=== PATIENT | female | born 1955 | race Caucasian/White ===

== ENCOUNTER 2016-08-01 13:15 | Observation (INO) | payer OTHER ==
[2016-08-01] VITALS (9 sets, daily range): BP systolic 144–202; BP diastolic 88–105; PULSE 78–97; RESP 12–20; TEMP 98.2–98.6; O2SAT 95–100
[~2016-08-01] VITALS: Ht 167.6 cm; Wt 92.0 kg
[~2016-08-01 13:15] MED LIST: ACET-703 PO; ALPR0.25 PO; AMLO5TAB2 PO; ASPI1TAB91 PO; AVIATAB PO; DIAZ5 PO; DULO1CAP3 PO; FEXO15TA PO; FLUT1SPR5 EACH NARE; GABA300C5 PO; HYDR-755 PO; INDA2.5T PO; LANS30CA PO; LEVO75TA3 PO; LOSA50TA PO; METO25TA3 PO
--- NOTE | 2016-08-01 13:27 | PD ---
Physical Exam Time Seen by Provider: 13:22 Narrative 61 year old female presents to the ED for evaluation chest pain. Pain is 7/10, constant. She took nitro two times today and slightly helped the symptoms, but the pain persisted. She contacted Dr. Soto to advised she come to ED. She reports that her BP has been higher over the last two weeks with associated headaches and a "bubble in her chest sensation." But the consistency and pain with minimal results after nitro caused her to be concerned. She has had cardiac stenting in the past as well as angioplasty as recent as 2015. Denies any other recent illness, fever, or chills. 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 Appears without distress. Pt is hypertensive. EKG completed in triage. Once a medical bed becomes available, she will be transferred. Condition: Stable Regina Leonardo Aug 01, 2016 13:27
[2016-08-01] MEDS ORDERED: SODIUM CHLORIDE 0.9% FLUSH 10 ML FLUSH IVF PRN (15:00)
[2016-08-01] MEDS ORDERED: ASPIRIN 325 MG TAB PO ONE (15:15)
[2016-08-01 15:21] LABS: AUTOMATED NEUTROPHIL # 2.8 TH/MM3 (1.8-7.7); BASOPHIL # 0.1 TH/MM3 (0-0.2); BASOPHIL % 1.1 % (0.0-2.0); EOSINOPHIL # 0.1 TH/MM3 (0-0.4); EOSINOPHIL % 2.2 % (0.0-4.0); HEMATOCRIT 44.9 % (35.0-46.0); HEMO FLAGS DIFF FINAL; LYMPH % 48.1 % (9.0-44.0); LYMPHOCYTE # 3.2 TH/MM3 (1.0-4.8); MEAN CELL VOLUME 88.2 FL (80.0-100.0); MEAN CORPUSCULAR HEMOGLOBIN 30.3 PG (27.0-34.0); MEAN CORPUSCULAR HGB CONC 34.3 % (32.0-36.0); MONO % 6.3 % (0.0-8.0); NEUT % 42.3 % (16.0-70.0); PLATELET COUNT 272 TH/MM3 (150-450); RED BLOOD COUNT 5.09 MIL/MM3 (4.00-5.30); RED CELL DISTRIBUTION WIDTH 13.4 % (11.6-17.2); WHITE BLOOD COUNT 6.6 TH/MM3 (4.0-11.0)
[2016-08-01] MEDS ORDERED: HYDR25TA35 PO (15:36)
[2016-08-01] MEDS ORDERED: GABA600T PO ×2 (15:36)
[2016-08-01 15:47] LABS: APTT (PATIENT) 27.5 SEC (24.3-30.1); INTERNATIONAL NORMALIZED RATIO 0.9 RATIO
[2016-08-01 15:58] LABS: ALT (GPT) 24 U/L (10-53); ANION GAP 12 MEQ/L (5-15); AST (GOT) 20 U/L (15-37); BICARBONATE 24.3 MEQ/L (21.0-32.0); BLOOD UREA NITROGEN 8 MG/DL (7-18); CHLORIDE 103 MEQ/L (98-107); GLOMERULAR FILTRATION RATE 92 ML/MIN (>89); MAGNESIUM 2.3 MG/DL (1.5-2.5); POTASSIUM 3.4 MEQ/L (3.5-5.1); SODIUM (NA) 139 MEQ/L (136-145)
[2016-08-01 16:00] LABS: ALKALINE PHOSPHATASE 70 U/L (45-117); CREATINE KINASE 168 U/L (26-192); TOTAL BILIRUBIN ADULT 0.3 MG/DL (0.2-1.0)
--- NOTE | 2016-08-01 16:48 | RADRPT ---
EXAM DATE/TIME: 08/01/2016 16:01 [facility] COMPARISON: CHEST SINGLE AP, March 20, 2016, 9:39. INDICATIONS : Chest pain. MEDICAL HISTORY : coronary artery disease SURGICAL HISTORY : Coronary artery stent. ENCOUNTER: Initial ACUITY: 1 day PAIN SCORE: 8/10 LOCATION: Bilateral chest FINDINGS: A single view of the chest demonstrates the lungs to be symmetrically aerated without evidence of mas s, infiltrate or effusion. The cardiomediastinal contours are stable with tortuosity of the descendi ng thoracic aorta. Osseous structures are intact. CONCLUSION: The lungs are clear. Tariq Lauren MD on August 01, 2016 at 16:40 Board Certified Radiologist. This report was verified electronically.
--- NOTE | 2016-08-01 17:04 | PD ---
Physical Exam Date Seen by Provider: Aug 01, 2016 Time Seen by Provider: 14:30 Narrative 61-year-old female with history of previous coronary artery disease status post stenting, family history of coronary artery disease and MIs early in life, presents to the ER today because she states that she started having substernal chest pains which she rates at a 7 out of 10 at its worse, took nitroglycerin and the chest pain improved only slightly to a 6 out of 10. She denies any vomiting, fevers, shortness of breath, chills, or other symptoms. She states that this discomfort feels like a "bubble in her chest". She does not obey exacerbating alleviating factors. Modifying Factors: None Associated Signs & Symptoms: Chest discomfort Risk Factors: Cardiac history Past medical history includes hypertension, previous CAD status post stenting, gastroesophageal reflux, thyroid disease PHYSICAL EXAM: GENERAL: Middle-aged white female patient currently none acute distress. Awake , alert, oriented 3. Well-developed. SKIN: Focused skin assessment warm/dry. HEAD: Atraumatic. Normocephalic. EYES: Pupils equal and round. No scleral icterus. No injection or drainage. ENT: No nasal bleeding or discharge. Mucous membranes pink and moist. NECK: Trachea midline. No JVD. CARDIOVASCULAR: Regular rate and rhythm. No murmur appreciated. Pulses are present and equal bilaterally. RESPIRATORY: No accessory muscle use. Clear to auscultation. Breath sounds equal bilaterally. GASTROINTESTINAL: Abdomen soft, non-tender, nondistended. Hepatic and splenic margins not palpable. MUSCULOSKELETAL: No obvious deformities. No clubbing. No cyanosis. No edema. NEUROLOGICAL: Awake and alert. No obvious cranial nerve deficits. Motor grossly within normal limits. Normal speech. PSYCHIATRIC: Appropriate mood and affect; insight and judgment normal. Data Data Last Documented VS Vital Signs Date Time Temp Pulse Resp B/P Pulse Ox O2 Delivery O2 Flow Rate FiO2 08/01/16 15:26 99 2 08/01/16 15:23 Nasal Cannula 08/01/16 13:17 98.6 85 12 193/105 Orders Electrocardiogram (08/01/16 13:25) Ckmb (Isoenzyme) Profile (08/01/16 14:58) Complete Blood Count With Diff (08/01/16 14:58) Comprehensive Metabolic Panel (08/01/16 14:58) Magnesium (Mg) (08/01/16 14:58) Prothrombin Time / Inr (Pt) (08/01/16 14:58) Act Partial Throm Time (Ptt) (08/01/16 14:58) Troponin I (08/01/16 14:58) Chest, Single Ap (08/01/16 14:58) Ecg Monitoring (08/01/16 14:58) Bilateral Bp Monitoring (08/01/16 14:58) Iv Access Insert/Monitor (08/01/16 14:58) Oximetry (08/01/16 14:58) Oxygen Administration (08/01/16 14:58) Sodium Chloride 0.9% Flush (Ns Flush) (08/01/16 15:00) Aspirin (Aspirin) (08/01/16 15:15) CKMB (08/01/16 15:10) CKMB% (08/01/16 15:10) Admit Order (Ed Use Only) (08/01/16 16:56) Labs Laboratory Tests Test 08/01/16 15:10 White Blood Count 6.6 TH/MM3 Red Blood Count 5.09 MIL/MM3 Hemoglobin 15.4 GM/DL Hematocrit 44.9 % Mean Corpuscular Volume 88.2 FL Mean Corpuscular Hemoglobin 30.3 PG Mean Corpuscular Hemoglobin 34.3 % Concent Red Cell Distribution Width 13.4 % Platelet Count 272 TH/MM3 Mean Platelet Volume 6.9 FL Neutrophils (%) (Auto) 42.3 % Lymphocytes (%) (Auto) 48.1 % Monocytes (%) (Auto) 6.3 % Eosinophils (%) (Auto) 2.2 % Basophils (%) (Auto) 1.1 % Neutrophils # (Auto) 2.8 TH/MM3 Lymphocytes # (Auto) 3.2 TH/MM3 Monocytes # (Auto) 0.4 TH/MM3 Eosinophils # (Auto) 0.1 TH/MM3 Basophils # (Auto) 0.1 TH/MM3 CBC Comment DIFF FINAL Differential Comment Prothrombin Time 10.0 SEC Prothromb Time International 0.9 RATIO Ratio Activated Partial 27.5 SEC Thromboplast Time Sodium Level 139 MEQ/L Potassium Level 3.4 MEQ/L Chloride Level 103 MEQ/L Carbon Dioxide Level 24.3 MEQ/L Anion Gap 12 MEQ/L Blood Urea Nitrogen 8 MG/DL Creatinine 0.66 MG/DL Estimat Glomerular Filtration 92 ML/MIN Rate Random Glucose 75 MG/DL Calcium Level 8.9 MG/DL Magnesium Level 2.3 MG/DL Total Bilirubin 0.3 MG/DL Aspartate Amino Transf 20 U/L (AST/SGOT) Alanine Aminotransferase 24 U/L (ALT/SGPT) Alkaline Phosphatase 70 U/L Total Creatine Kinase 168 U/L Creatine Kinase MB 3.0 NG/ML Troponin I LESS THAN 0.02 NG/ML Total Protein 8.0 GM/DL Albumin 4.1 GM/DL [facility] Medical Record Reviewed: Yes Supervised Visit with RICH: No Interpretation(s) EKG shows NSR, no ST elevation or depression, and no arrhythmias. No significant T-wave inversions. Laboratory Tests Test 08/01/16 15:10 Hemoglobin 15.4 GM/DL (11.6-15.3) Mean Platelet Volume 6.9 FL (7.0-11.0) Lymphocytes (%) (Auto) 48.1 % (9.0-44.0) Potassium Level 3.4 MEQ/L (3.5-5.1) Troponin I LESS THAN 0.02 NG/ML (0.02-0.05) Last 24 hours Impressions Chest X-Ray 08/01/16 8268 Signed Impressions: Service Date/Time: Monday, August 01, 2016 16:01 - CONCLUSION: The lungs are clear. Tariq Lauren MD Differential Diagnosis ACS versus dysrhythmias versus anxiety versus GERD Narrative Course Cardiac enzymes and chest x-ray was unremarkable. Patient is not in distress in the ER. However, considering patient's history, my plan would be to admit the patient for further evaluation. Planning to admit to chest pain center for further evaluation. Diagnosis Primary Impression: Chest pain Admitting Information Admitting Physician Requests: Admit Condition: Stable Jaclyn Lorenz MD Aug 01, 2016 17:04
[2016-08-01] MEDS ORDERED: SODIUM CHLORIDE 0.9% FLUSH 10 ML FLUSH IV FLUSH PRN (17:15)
[2016-08-01] MEDS ORDERED: ONDANSETRON HCL 4 MG/2 ML VIAL IV PRN (17:15)
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
[2016-08-01] MEDS: NITROGLYCERIN 0.4 MG SL 25 TABS/BTL SL PRN ×3 (18:43→18:57)
[2016-08-01 18:48] LABS: CREATINE KINASE 163 U/L (26-192)
[2016-08-01 19:00] LABS: CKMB 2.4 NG/ML (0.5-3.6)
[2016-08-01] MEDS ORDERED: cloNIDine HCL 0.1 MG TAB PO PRN (19:45)
[2016-08-01] MEDS: ACETAMINOPHEN 500 MG CPLT PO PRN (20:12)
[2016-08-01] MEDS ORDERED: PILL SPLITTER OTHER PRN (20:30)
[2016-08-01] MEDS ORDERED: GABAPENTIN 300 MG CAP PO SCH (21:00)
[2016-08-01 22:03] LABS: CREATINE KINASE 126 U/L (26-192)
[2016-08-01 22:16] LABS: CKMB 2.7 NG/ML (0.5-3.6)
[2016-08-01] MEDS: SODIUM CHLORIDE 0.9% FLUSH 10 ML FLUSH IV FLUSH SCH (22:17)
[2016-08-01] MEDS: LOSARTAN 50 MG TAB PO SCH (22:18)
[2016-08-01] MEDS: PANTOPRAZOLE SOD 40 MG DELAYED RELEASE TAB PO SCH (22:19)
[2016-08-01] MEDS: METOPROLOL TARTRATE 25 MG TAB PO SCH (22:19)
--- NOTE | 2016-08-01 23:39 | EKG ---
Date Performed: 08/01/2016 Time Performed: 13:32:18 PTAGE: 61 years EKG: Sinus rhythm LOW QRS VOLTAGE IN PRECORDIAL LEADS INFERIOR MYOCARDIAL INFARCTION ABNORMAL ECG PREVIOUS TRACING : 03/20/2016 09.32 Compared to prior tracing no significant change DOCTOR: Jose Martin Interpretating Date/Time 08/01/2016 23:37:26
[2016-08-02 00:31] VITALS: PULSE 85
[2016-08-02 01:28] VITALS: BP 170/92; PULSE 76; RESP 20; TEMP 97.3; O2SAT 95
[2016-08-02 04:10] VITALS: PULSE 80
[2016-08-02 05:41] VITALS: BP 170/92; PULSE 77; RESP 20; TEMP 99; O2SAT 96
[2016-08-02] MEDS ORDERED: LEVOTHYROXINE SODIUM 75 MCG TAB PO SCH (06:00)
[2016-08-02] MEDS: ACETAMINOPHEN 500 MG CPLT PO PRN (06:02)
[2016-08-02 07:13] VITALS: BP 148/92; PULSE 84; RESP 20; TEMP 97.9; O2SAT 95
[2016-08-02] MEDS: hydrALAZINE HCL 25 MG TAB PO SCH ×2 (08:39→12:51)
[2016-08-02] MEDS: PANTOPRAZOLE SOD 40 MG DELAYED RELEASE TAB PO SCH (08:39)
[2016-08-02] MEDS: METOPROLOL TARTRATE 25 MG TAB PO SCH (08:39)
[2016-08-02] MEDS: LOSARTAN 50 MG TAB PO SCH (08:39)
[2016-08-02] MEDS: SODIUM CHLORIDE 0.9% FLUSH 10 ML FLUSH IV FLUSH SCH (08:43)
[2016-08-02] MEDS ORDERED: GABAPENTIN 300 MG CAP PO SCH (09:00)
[2016-08-02] MEDS ORDERED: ASPIRIN 325 MG TAB PO SCH (09:00)
--- NOTE | 2016-08-02 09:26 | RADRPT ---
EXAM DATE/TIME: 08/02/2016 09:14 [facility] COMPARISON: No previous studies available for comparison. INDICATIONS : Cephalgia. RADIATION DOSE: 35.01 CTDIvol (mGy) MEDICAL HISTORY : Hypertension. Diabetes mellitus type 1. Dizziness SURGICAL HISTORY : ENCOUNTER: Initial ACUITY: 1 day PAIN SCALE: 1/10 LOCATION: TECHNIQUE: Multiple contiguous axial images were obtained of the head. Using automated exposure control and adj ustment of the mA and/or kV according to patient size, radiation dose was kept as low as reasonably a chievable to obtain optimal diagnostic quality images. FINDINGS: CEREBRUM: The ventricles are normal for age. No evidence of midline shift, mass lesion, hemorrhage or acute in farction. No extra-axial fluid collections are seen. POSTERIOR FOSSA: The cerebellum and brainstem are intact. The 4th ventricle is midline. The cerebellopontine angle i s unremarkable. EXTRACRANIAL: The visualized portion of the orbits is intact. SKULL: The calvaria is intact. No evidence of skull fracture. CONCLUSION: Negative noncontrast CT brain. Tariq Lauren MD on August 02, 2016 at 9:24 Board Certified Radiologist. This report was verified electronically.
[2016-08-02] MEDS ORDERED: REGADENOSON INJ 0.4 MG/5 ML SYR ONE (10:13)
[2016-08-02 11:26] VITALS: BP 177/93; PULSE 76; RESP 20; TEMP 98.7; O2SAT 96
--- NOTE | 2016-08-02 11:44 | RADRPT ---
EXAM DATE/TIME: 08/02/2016 09:16 [facility] COMPARISON: No previous studies available for comparison. INDICATIONS : Left sided chest pain. Angina. Coronary artery disease. DOSE: 26.2 mCi Tc99m Myoview at stress. 8.5 mCi Tc99m Myoview at rest. 0.4 mg Lexiscan STRESS SYMPTOMS: Shortness of breath with chest pain and nausea. EJECTION FRACTION: 65% MEDICAL HISTORY : Hypertension. SURGICAL HISTORY : Coronary artery stent. section. Inguinal hernia repair. Discectomy. ENCOUNTER: Initial ACUITY: 1 day PAIN SCALE: 2/10 LOCATION: Left chest TECHNIQUE: The patient underwent pharmacologic stress with infusion of prescribed dose. Continuous ECG tracing was monitored during stress. Gated SPECT imaging was performed after stress and conventional SPECT i maging was performed at rest. The examination was performed on a SPECT/CT scanner, both attenuation and non-corrected datasets were reviewed. FINDINGS: DISTRIBUTION: The maximum perfused segment at stress is in the anterior wall. PERFUSION STUDY: There is a small size mild severity perfusion defect seen in the apical segment of the lateral wall w ith decrease in perfusion approximately 30%. Review of raw data images demonstrates a different marty deandre of breast attenuation to the apical segment between rest and stress in the changed appearance cou ld be due to differential attenuation effects. No other perfusion defects seen. The summed stress s core is one. GATED STUDY: There is intact wall motion and thickening without hypokinetic or dyskinetic segments. CONCLUSION: 1. No definite evidence of stress-induced ischemia. Small mild decrease in perfusion to the apical l ateral wall is probably due to breast attenuation effects. 2. Intact wall motion 65% ejection fraction. RISK CATEGORY: Low (<1% Annual Mortality Rate) Tariq Lauren MD on August 02, 2016 at 11:34 Board Certified Radiologist. This report was verified electronically.
--- NOTE | 2016-08-02 12:04 | HHI.DCPOC ---
Discharge Care Plan Diagnosis: (1) Chest pain (2) Coronary artery disease (3) H/O heart artery stent (4) Hypertension (5) Hypothyroidism Goals to Promote Your Health DISCUSS THE NEED FOR CHOLESTEROL MEDICATIONS WITH YOUR DOCTOR. * To prevent worsening of your condition and complications * To maintain your health at the optimal level Directions to Meet Your Goals Take your medications as prescribed Follow your dietary instruction Follow activity as directed Keep your appointments as scheduled Take your immunizations and boosters as scheduled If your symptoms worsen call your PCP, if no PCP go to Urgent Care Center or Emergency Room Smoking is Dangerous to Your Health. Avoid second hand smoke Call the 24-hour hour crisis hotline for domestic abuse at [place] Aug 02, 2016 12:04
--- NOTE | 2016-08-02 12:53 | EKG ---
Date Performed: 08/01/2016 Time Performed: 18:01:30 PTAGE: 61 years EKG: Sinus rhythm MODERATE VOLTAGE CRITERIA FOR LVH, CONSIDER NORMAL VARIANT BORDERLINE ECG PREVIOUS TRACING : 08/01/2016 13.32 Since previous tracing, no significant change noted DOCTOR: Jean Paul Basurto Interpretating Date/Time 08/02/2016 12:52:30
--- NOTE | 2016-08-02 12:53 | EKG ---
Date Performed: 08/01/2016 Time Performed: 21:08:08 PTAGE: 61 years EKG: Sinus rhythm MINIMAL VOLTAGE CRITERIA FOR LVH, CONSIDER NORMAL VARIANT NONSPECIFIC T-WAVE ABNORMALITY BORDERLINE ECG NO PREVIOUS TRACING DOCTOR: Jean Paul Basurto Interpretating Date/Time 08/02/2016 12:52:05
--- NOTE | 2016-08-02 12:55 | TR ---
Date Performed: 08/02/2016 Time Performed: 10:04:05 DOCTOR: Jean Paul Basurto DRUG LIST: CLINICAL HISTORY: ANGINA REASON FOR TEST: Angina REASON FOR ENDING: OBSERVATION: CONCLUSION: Lexiscan stress test was performed under standard four minute protocol. Radionuclid e was injected one minute prior to ending the test. No electrocardiographic abormalities were present to suggest ischemia. Nuclear imaging and interpretation are pending. COMMENTS:
== END 2016-08-02 14:16 | disposition home or self-care (01) ==
LOC: NEPC 13:15 → NEDA 16:57 → NEPGCP 19:53
PROVIDERS: ADMIT Internal Medicine Interventional Cardiology; ATTEND Internal Medicine Interventional Cardiology
DX: R07.2 Precordial pain (principal); I25.10 Atherosclerotic heart disease of native coronary artery without angina pectoris; I10 Essential (primary) hypertension; K21.9 Gastro-esophageal reflux disease without esophagitis; G89.29 Other chronic pain; M54.2 Cervicalgia; M79.7 Fibromyalgia; E03.9 Hypothyroidism, unspecified; Z88.1 Allergy status to other antibiotic agents; Z95.5 Presence of coronary angioplasty implant and graft; Z82.49 Family history of ischemic heart disease and other diseases of the circulatory system; Z88.5 Allergy status to narcotic agent; Z88.2 Allergy status to sulfonamides; Z88.8 Allergy status to other drugs, medicaments and biological substances; Z79.82 Long term (current) use of aspirin
CPT/HCPCS: 70450; 71010; 78452; 80053; 82550; 82552; 83735; 84443; 84484; 85025; 85610; 85730; 93005; 93017; 99285; A9502; G0378; J2785

== ENCOUNTER 2016-08-28 10:44 | Observation (INO) | payer OTHER ==
[2016-08-28] VITALS (7 sets, daily range): BP systolic 131–144; BP diastolic 68–89; PULSE 71–109; RESP 16–20; TEMP 98.9–100.1; O2SAT 96–98
[~2016-08-28 10:44] MED LIST changes: -ALPR0.25 PO; -AMLO5TAB2 PO; -DIAZ5 PO; -DULO1CAP3 PO; -GABA300C5 PO; +GABA600T PO; -HYDR-755 PO; +HYDR25TA35 PO; -INDA2.5T PO
[2016-08-28] MEDS ORDERED: SODIUM CHLORIDE 0.9% FLUSH 10 ML FLUSH IVF PRN (11:15)
--- NOTE | 2016-08-28 11:32 | PD ---
HPI Chief Complaint: Cardiac Complaint Time Seen by Provider: 11:22 Travel History International Travel<30 days: No Contact w/Intl Traveler<30days: No Traveled to known affect area: No History of Present Illness HPI 61-year-old female patient with history of hypertension, CAD with stenting, recent admission for cardiac evaluation of syncope and chest pains, presents back to the ER today because she has had 2 days history of dizziness, chest discomfort, feels like she is about to pass out, and states she had flulike symptoms last week as well. She has been coughing with green phlegm, having fevers but states the fevers have been settling down. She denies any current vomiting, diarrhea,, or any other symptoms. Modifying Factors: None Associated Signs & Symptoms: Chest discomfort, dizziness, near syncope Risk Factors: Recent flulike symptoms and coughing, previous episodes of syncope PFSH Past Medical History Hx Anticoagulant Therapy: Yes (ASA) Blood Disorders: No Heart Rhythm Problems: Yes (CAD) Cancer: No Cardiac Catheterization: Yes (2012) Cardiovascular Problems: Yes (HTN,CAD) High Cholesterol: Yes Congestive Heart Failure: No Coronary Artery Disease: Yes Diminished Hearing: No Endocrine: Yes Fibromyalgia: Yes Gastrointestinal Disorders: Yes GERD: Yes Genitourinary: No Headaches: Yes Heparin Induced Thrombocytopen: No Hypertension: Yes Immune Disorder: No Musculoskeletal: Yes Neurologic: Yes Psychiatric: No Reproductive: No Respiratory: No Thyroid Disease: Yes Past Surgical History Abdominal Surgery: Yes (99' UMBILICAL HERNIA REPAIR) Cardiac Surgery: Yes (1 STENT) Section: Yes (X 1) Coronary Artery Bypass Graft: No Gynecologic Surgery: Yes (96' ) Oral Surgery: Yes (WISDOM TEETH AGE 21) Pacemaker: No Other Surgery: Yes Family History Family Myocardial Infarction: No Social History Alcohol Use: No Tobacco Use: No Substance Use: No Allergies-Medications (Allergen,Severity, Reaction): Coded Allergies: Cipro (Unverified Allergy, Severe, 08/28/16) Darvocet-N 100 (Unverified Allergy, Severe, 08/28/16) Procardia (Unverified Allergy, Severe, 08/28/16) Sulfa (Verified Allergy, Intermediate, HIVES, 08/28/16) Zanaflex (Verified Allergy, Intermediate, VOMITING, 08/28/16) Reported Meds & Prescriptions Reported Meds & Active Scripts Active Reported Hydralazine (Hydralazine HCl) 25 Mg Tab 25 Mg PO TID Take with a meal Gabapentin 600 Mg Tab 1,200 Mg PO HS Gabapentin 600 Mg Tab 600 Mg PO DAILY Losartan (Losartan Potassium) 50 Mg Tab 50 Mg PO BID Tylenol Extra Strength (Acetaminophen) 500 Mg Tab 1,000 Mg PO Q4-6H PRN Metoprolol Tartrate 25 Mg Tab 75 Mg PO BID Levothyroxine (Levothyroxine Sodium) 75 Mcg Tab 75 Mcg PO DAILY Lansoprazole 30 Mg Capdr 30 Mg PO BID Flonase Nasal [place] (Fluticasone Nasal [place]) 50 Mcg/Act [place] 2 [place] EACH NARE DAILY PRN Linda Allergy (Fexofenadine HCl) 180 Mg Tab 180 Mg PO DAILY PRN Aviane (Levonorgestrel-Ethinyl Estradiol) 0.1-20 Mg-Mcg Tab 1 Tab PO DAILY Aspirin Adult Low Strength (Aspirin) 81 Mg Tabdr 81 Mg PO HS Review of Systems Except as stated in HPI: all other systems reviewed are Neg Physical Exam Narrative GENERAL: Well-developed middle age white female patient in mild distress. Awake and oriented 3. SKIN: Focused skin assessment warm/dry. HEAD: Atraumatic. Normocephalic. EYES: Pupils equal and round. No scleral icterus. No injection or drainage. ENT: No nasal bleeding or discharge. Mucous membranes pink and moist. NECK: Trachea midline. No JVD. CARDIOVASCULAR: Regular rate and rhythm. No murmur appreciated. RESPIRATORY: No accessory muscle use. Clear to auscultation. Breath sounds equal bilaterally. GASTROINTESTINAL: Abdomen soft, non-tender, nondistended. Hepatic and splenic margins not palpable. MUSCULOSKELETAL: No obvious deformities. No clubbing. No cyanosis. No edema. NEUROLOGICAL: Awake and alert. No obvious cranial nerve deficits. Motor grossly within normal limits. Normal speech. PSYCHIATRIC: Appropriate mood and affect; insight and judgment normal. Data Data Last Documented VS Vital Signs Date Time Temp Pulse Resp B/P Pulse Ox O2 Delivery O2 Flow Rate FiO2 08/28/16 16:41 90 16 136/81 96 08/28/16 12:11 Room Air 08/28/16 10:45 98.9 Orders Electrocardiogram (08/28/16 11:11) Complete Blood Count With Diff (08/28/16 11:11) Comprehensive Metabolic Panel (08/28/16 11:11) Magnesium (Mg) (08/28/16 11:11) Urinalysis - C+S If Indicated (08/28/16 11:11) Ecg Monitoring (08/28/16 11:11) Iv Access Insert/Monitor (08/28/16 11:11) Oximetry (08/28/16 11:11) Sodium Chloride 0.9% Flush (Ns Flush) (08/28/16 11:15) Chest, Single Ap (08/28/16 11:22) Thyroid Stimulating Hormone (08/28/16 11:23) Free Thyroxine (T4) (08/28/16 11:23) Free T3 (08/28/16 11:23) Prothrombin Time / Inr (Pt) (08/28/16 11:32) Act Partial Throm Time (Ptt) (08/28/16 11:32) D-Dimer (08/28/16 11:32) Ct Pulmonary Angiogram (08/28/16 12:36) Iohexol 350 Inj (Omnipaque 350 Inj) (08/28/16 15:34) Labs Laboratory Tests Test 08/28/16 11:30 White Blood Count 6.8 TH/MM3 Red Blood Count 4.32 MIL/MM3 Hemoglobin 12.8 GM/DL Hematocrit 37.9 % Mean Corpuscular Volume 87.8 FL Mean Corpuscular Hemoglobin 29.6 PG Mean Corpuscular Hemoglobin 33.7 % Concent Red Cell Distribution Width 12.9 % Platelet Count 311 TH/MM3 Mean Platelet Volume 7.0 FL Neutrophils (%) (Auto) 67.1 % Lymphocytes (%) (Auto) 25.8 % Monocytes (%) (Auto) 6.1 % Eosinophils (%) (Auto) 0.7 % Basophils (%) (Auto) 0.3 % Neutrophils # (Auto) 4.5 TH/MM3 Lymphocytes # (Auto) 1.7 TH/MM3 Monocytes # (Auto) 0.4 TH/MM3 Eosinophils # (Auto) 0.0 TH/MM3 Basophils # (Auto) 0.0 TH/MM3 CBC Comment DIFF FINAL Differential Comment Prothrombin Time 10.3 SEC Prothromb Time International 0.9 RATIO Ratio Activated Partial 24.5 SEC Thromboplast Time D-Dimer Quantitative (PE/DVT) 1.09 MG/L FEU Urine Color YELLOW Urine Turbidity CLEAR Urine pH 7.0 Urine Specific [place] 1.008 Urine Protein NEG mg/dL Urine Glucose (UA) NEG mg/dL Urine Ketones NEG mg/dL Urine Occult Blood NEG Urine Nitrite NEG Urine Bilirubin NEG Urine Urobilinogen LESS THAN 2.0 MG/DL Urine Leukocyte Esterase NEG Urine RBC LESS THAN 1 /hpf Urine WBC LESS THAN 1 /hpf Urine Bacteria RARE /hpf Microscopic Urinalysis Comment CULT NOT INDICATED Sodium Level 141 MEQ/L Potassium Level 3.6 MEQ/L Chloride Level 107 MEQ/L Carbon Dioxide Level 25.9 MEQ/L Anion Gap 8 MEQ/L Blood Urea Nitrogen 9 MG/DL Creatinine 0.56 MG/DL Estimat Glomerular Filtration 111 ML/MIN Rate Random Glucose 97 MG/DL Calcium Level 8.6 MG/DL Magnesium Level 2.3 MG/DL Total Bilirubin 0.4 MG/DL Aspartate Amino Transf 23 U/L (AST/SGOT) Alanine Aminotransferase 30 U/L (ALT/SGPT) Alkaline Phosphatase 59 U/L Total Protein 6.8 GM/DL Albumin 3.6 GM/DL Free Thyroxine 1.23 NG/DL Free Triiodothyronine (T3) 2.16 PG/ML pg/dL Thyroid Stimulating Hormone 0.709 uIU/ML [address] [place] [address] Medical Decision Making Medical Screen Exam Complete: Yes Emergency Medical Condition: Yes Medical Record Reviewed: Yes Interpretation(s) EKG shows NSR, no ST elevation or depression, and no arrhythmias. No significant T-wave inversions. No significant ST changes. No QT prolongation or delta wave. Laboratory Tests Test 08/28/16 11:30 D-Dimer Quantitative (PE/DVT) 1.09 MG/L FEU (0.00-0.50) Urine Bacteria RARE /hpf (NONE) Free Triiodothyronine (T3) 2.16 PG/ML pg/dL (2.18-3.98) Last [address] Angiography 08/28/16 1236 Signed Impressions: Service Date/Time: Sunday, August 28, 2016 15:33 - CONCLUSION: Negative for pulmonary emboli. History of cardiac stent. Luther Hinton MD FACR Chest X-Ray 08/28/16 1122 Signed Impressions: Service Date/Time: Sunday, August 28, 2016 11:56 - CONCLUSION: No acute disease. No significant change has occurred. Saúl Marie MD Differential Diagnosis Chest discomfort, dizziness, near syncopedysrhythmias versus dehydration versus pneumonia versus anxiety attack Narrative Course EKG did not show dysrhythmias. Cardiac enzymes and workup was essentially unremarkable. Patient has no focal neurological deficits. Negative Romberg testing. At this point, she is fairly symptomatic and plan would be to admit her as an observation for further evaluation. Case was discussed with Dr. Gillespie for admission. Diagnosis Primary Impression: Chest pain Additional Impression: Syncope Admitting Information Admitting Physician Requests: Admit Jaclyn Lorenz MD August 28, 2016 11:32
[2016-08-28 12:06] LABS: AUTOMATED NEUTROPHIL # 4.5 TH/MM3 (1.8-7.7); BASOPHIL % 0.3 % (0.0-2.0); EOSINOPHIL % 0.7 % (0.0-4.0); HEMATOCRIT 37.9 % (35.0-46.0); HEMO FLAGS DIFF FINAL; LYMPH % 25.8 % (9.0-44.0); LYMPHOCYTE # 1.7 TH/MM3 (1.0-4.8); MEAN CELL VOLUME 87.8 FL (80.0-100.0); MEAN CORPUSCULAR HEMOGLOBIN 29.6 PG (27.0-34.0); MEAN CORPUSCULAR HGB CONC 33.7 % (32.0-36.0); MONO % 6.1 % (0.0-8.0); NEUT % 67.1 % (16.0-70.0); PLATELET COUNT 311 TH/MM3 (150-450); RED BLOOD COUNT 4.32 MIL/MM3 (4.00-5.30); RED CELL DISTRIBUTION WIDTH 12.9 % (11.6-17.2); WHITE BLOOD COUNT 6.8 TH/MM3 (4.0-11.0)
[2016-08-28 12:19] LABS: APTT (PATIENT) 24.5 SEC (24.3-30.1); BACTERIA, URINE RARE /hpf; BLOOD, URINE NEG (NEG); GLUCOSE,URINE NEG (NEG); INTERNATIONAL NORMALIZED RATIO 0.9 RATIO; KETONE, URINE NEG (NEG); NITRITE,URINE NEG (NEG); PROTHROMBIN TIME - PATIENT 10.3 SEC (9.8-11.6); URINE COLOR YELLOW (YELLW/STRAW)
[2016-08-28 12:29] LABS: COMMENT (UR) CULT NOT INDICATED; CULTURE IF INDICATED CULT NOT INDICATED
[2016-08-28 12:31] LABS: ALT (GPT) 30 U/L (10-53); ANION GAP 8 MEQ/L (5-15); AST (GOT) 23 U/L (15-37); BICARBONATE 25.9 MEQ/L (21.0-32.0); BLOOD UREA NITROGEN 9 MG/DL (7-18); CHLORIDE 107 MEQ/L (98-107); GLOMERULAR FILTRATION RATE 111 ML/MIN (>89); MAGNESIUM 2.3 MG/DL (1.5-2.5); POTASSIUM 3.6 MEQ/L (3.5-5.1); SODIUM (NA) 141 MEQ/L (136-145)
[2016-08-28 12:33] LABS: ALKALINE PHOSPHATASE 59 U/L (45-117); TOTAL BILIRUBIN ADULT 0.4 MG/DL (0.2-1.0)
--- NOTE | 2016-08-28 12:34 | RADRPT ---
EXAM DATE/TIME: 08/28/2016 11:56 [facility] COMPARISON: CHEST SINGLE AP, August 01, 2016, 16:01. INDICATIONS : Chest pain, palpitations. MEDICAL HISTORY : Cardiovascular disease. SURGICAL HISTORY : Coronary artery stent. ENCOUNTER: Initial ACUITY: 1 day PAIN SCORE: 5/10 LOCATION: Bilateral chest FINDINGS: A single view of the chest demonstrates the lungs to be symmetrically aerated without evidence of mas s, infiltrate or effusion. The cardiomediastinal contours are unremarkable. Osseous structures are intact.CONCLUSION: No acute disease. No significant change has occurred. Saúl Marie MD on August 28, 2016 at 12:32 Board Certified Radiologist. This report was verified electronically.
[2016-08-28 12:41] LABS: FREE T3 2.16 PG/ML (2.18-3.98); FREE T4 1.23 NG/DL (0.76-1.46)
[2016-08-28] MEDS ORDERED: IOHEXOL 350 MG/ML 10 ML VIAL (for RAD DIAG) IV ONE (15:34)
--- NOTE | 2016-08-28 15:47 | RADRPT ---
EXAM DATE/TIME: 08/28/2016 15:33 [facility] COMPARISON: No previous studies available for comparison. INDICATIONS : Left sided chest pain for one month. IV CONTRAST: 50 cc Omnipaque 350 (iohexol) IV RADIATION DOSE: 12.88 CTDIvol (mGy) MEDICAL HISTORY : Hypertension. coronary artery disease SURGICAL HISTORY : cardiac catheterization ENCOUNTER: Initial ACUITY: 1 month PAIN SCALE: 5/10 LOCATION: Left chest TECHNIQUE: Volumetric scanning of the chest was performed using a pulmonary embolism protocol MIP images were re constructed. Using automated exposure control and adjustment of the mA and/or kV according to patien t size, radiation dose was kept as low as reasonably achievable to obtain optimal diagnostic quality images. FINDINGS: There are no suspicious lung lesions identified. The heart is minimally enlarged. There is no axillary or mediastinal adenopathy There is no evidence for central pulmonary emboli Stent is present in the LAD The portion of the liver and spleen identify are free of focal defects. CONCLUSION: Negative for pulmonary emboli. History of cardiac stent. Luther Hinton MD FACR on August 28, 2016 at 15:44 Board Certified Radiologist. This report was verified electronically.
--- NOTE | 2016-08-28 18:04 | HHI.HP ---
HPI Service [facility] Hospitalists Primary Care Physician Terry Hobson M.D. Admission Diagnosis palpitation Chief Complaint: palpitation Travel History International Travel<30 Days: No Contact w/Intl Traveler <30 Da: No Traveled to Known Affected Are: No History of Present Illness Pt is 61 yo with cad/lad stent who presents with recurrent episodes of palpitations and then chest pressure. she usually takes ntg for this with some relief. She had [facility] x 2 in with lad carisa. Then in 03/31 [facility] patent coronaries and stent. Last month admitted to [facility] and had lexiscan. This was felt to show artifact in apical region and less likely ischemia. Pt says these sx's have been on/off and her pcp evaluated her adrenal. She also mentions that endocrinology is searching for the answers and she is scheduled for thyroid u/s. Pt says bp meds recently increased. She was not comfortably going home tonight. denies syncope but did have dizziness during the palpitations. Review of Systems Other palpitation with some cp dizziness Past Family Social History Past Medical History cad, lad carisa 2013 [facility] 03/31 neg for obstruction lexiscan 07/31. no definite ischemia hypothyroidism umbilical hernia surgery c section c5/6 spinal stenosis s/p lami/fusion Reported Medications Hydralazine (Hydralazine HCl) 25 Mg Tab 25 Mg PO TID Take with a meal Gabapentin 600 Mg Tab 1,200 Mg PO HS Gabapentin 600 Mg Tab 600 Mg PO DAILY Losartan (Losartan Potassium) 50 Mg Tab 50 Mg PO BID Tylenol Extra Strength (Acetaminophen) 500 Mg Tab 1,000 Mg PO Q4-6H PRN Metoprolol Tartrate 25 Mg Tab 75 Mg PO BID Levothyroxine (Levothyroxine Sodium) 75 Mcg Tab 75 Mcg PO DAILY Lansoprazole 30 Mg Capdr 30 Mg PO BID Flonase Nasal [place] (Fluticasone Nasal [place]) 50 Mcg/Act [place] 2 [place] EACH NARE DAILY PRN Linda Allergy (Fexofenadine HCl) 180 Mg Tab 180 Mg PO DAILY PRN Aviane (Levonorgestrel-Ethinyl Estradiol) 0.1-20 Mg-Mcg Tab 1 Tab PO DAILY Aspirin Adult Low Strength (Aspirin) 81 Mg Tabdr 81 Mg PO HS Allergies: Coded Allergies: Cipro (Unverified Allergy, Severe, 08/28/16) Darvocet-N 100 (Unverified Allergy, Severe, 08/28/16) Procardia (Unverified Allergy, Severe, 08/28/16) Sulfa (Verified Allergy, Intermediate, HIVES, 08/28/16) Zanaflex (Verified Allergy, Intermediate, VOMITING, 08/28/16) Family History nc Social History no etoh/tob Physical Exam Vital Signs heent neg heart reg lung cta abd s/nt ext no edema Vital Signs Date Time Temp Pulse Resp B/P Pulse Ox O2 Delivery O2 Flow Rate FiO2 08/28/16 16:41 90 16 136/81 96 08/28/16 14:32 88 16 131/74 98 08/28/16 12:11 96 Room Air 08/28/16 12:11 92 Room Air 08/28/16 11:15 89 17 144/73 96 Room Air 08/28/16 10:45 98.9 109 20 135/89 96 Room Air Laboratory Laboratory Tests Test 08/28/16 11:30 White Blood Count 6.8 Red Blood Count 4.32 Hemoglobin 12.8 Hematocrit 37.9 Mean Corpuscular Volume 87.8 Mean Corpuscular Hemoglobin 29.6 Mean Corpuscular Hemoglobin 33.7 Concent Red Cell Distribution Width 12.9 Platelet Count 311 Mean Platelet Volume 7.0 Neutrophils (%) (Auto) 67.1 Lymphocytes (%) (Auto) 25.8 Monocytes (%) (Auto) 6.1 Eosinophils (%) (Auto) 0.7 Basophils (%) (Auto) 0.3 Neutrophils # (Auto) 4.5 Lymphocytes # (Auto) 1.7 Monocytes # (Auto) 0.4 Eosinophils # (Auto) 0.0 Basophils # (Auto) 0.0 CBC Comment DIFF FINAL Differential Comment Prothrombin Time 10.3 Prothromb Time International 0.9 Ratio Activated Partial 24.5 Thromboplast Time D-Dimer Quantitative (PE/DVT) 1.09 Urine Color YELLOW Urine Turbidity CLEAR Urine pH 7.0 Urine Specific [place] 1.008 Urine Protein NEG Urine Glucose (UA) NEG Urine Ketones NEG Urine Occult Blood NEG Urine Nitrite NEG Urine Bilirubin NEG Urine Urobilinogen LESS THAN 2.0 Urine Leukocyte Esterase NEG Urine RBC LESS THAN 1 Urine WBC LESS THAN 1 Urine Bacteria RARE Microscopic Urinalysis Comment CULT NOT INDICATED Sodium Level 141 Potassium Level 3.6 Chloride Level 107 Carbon Dioxide Level 25.9 Anion Gap 8 Blood Urea Nitrogen 9 Creatinine 0.56 Estimat Glomerular Filtration 111 Rate Random Glucose 97 Calcium Level 8.6 Magnesium Level 2.3 Total Bilirubin 0.4 Aspartate Amino Transf 23 (AST/SGOT) Alanine Aminotransferase 30 (ALT/SGPT) Alkaline Phosphatase 59 Total Protein 6.8 Albumin 3.6 Free Thyroxine 1.23 Free Triiodothyronine (T3) 2.16 pg/dL Thyroid Stimulating Hormone 0.709 3rd Gen Result Diagram: 08/28/16 1130 08/28/16 1130 Assessment and Plan Problem List: (1) Palpitations Status: Acute Plan: Pt is 61 yo with cad/lad carisa 2013 [facility] 03/31. no obstruction lexiscan 07/31 no definite ischemia c/o palpitations-recurrent with cp consult her vegetable grader telemetry overnight to monitor for arrhythmia ?30 holter..?loop recorder cont home meds (2) Coronary artery disease Status: Chronic (3) Hypertension Status: Chronic (4) Hypothyroidism Status: Chronic Thomas Gillespie MD August 28, 2016 18:03
[2016-08-28] MEDS ORDERED: LORATADINE 10 MG TAB PO PRN (18:15)
[2016-08-28] MEDS: METOPROLOL TARTRATE 25 MG TAB PO SCH (19:54)
[2016-08-28] MEDS: PANTOPRAZOLE SOD 40 MG DELAYED RELEASE TAB PO SCH (19:55)
[2016-08-28] MEDS: LOSARTAN 50 MG TAB PO SCH (19:55)
[2016-08-28 20:15] LABS: CREATINE KINASE 84 U/L (26-192)
[2016-08-28] MEDS ORDERED: GABAPENTIN 300 MG CAP PO SCH (21:00)
[2016-08-28] MEDS ORDERED: ASPIRIN EC 81 MG TABEC PO SCH (21:00)
[2016-08-29 00:20] VITALS: BP 126/63; PULSE 66; RESP 20; TEMP 98.3; O2SAT 93
[2016-08-29 03:04] LABS: CREATINE KINASE 72 U/L (26-192)
[2016-08-29 04:19] VITALS: BP 119/58; PULSE 70; RESP 20; O2SAT 96
[2016-08-29] MEDS ORDERED: LEVOTHYROXINE SODIUM 75 MCG TAB PO SCH (06:00)
[2016-08-29 07:33] VITALS: BP 124/60; PULSE 68; RESP 14; TEMP 98.5; O2SAT 96
[2016-08-29] MEDS: LOSARTAN 50 MG TAB PO SCH (08:06)
[2016-08-29] MEDS: PANTOPRAZOLE SOD 40 MG DELAYED RELEASE TAB PO SCH (08:06)
[2016-08-29] MEDS: METOPROLOL TARTRATE 25 MG TAB PO SCH (08:07)
--- NOTE | 2016-08-29 08:39 | HHI.PR ---
Subjective Remarks Pt reports that she had some palpitations last night around 7:15PM while she was still in the ED but this was not recorded on this telemetry for review. No events overnight and none this morning. Objective Vitals Vital Signs Date Time Temp Pulse Resp B/P Pulse Ox O2 Delivery O2 Flow Rate FiO2 08/29/16 07:33 98.5 68 14 124/60 96 08/29/16 04:19 70 20 119/58 96 08/29/16 00:20 98.3 66 20 126/63 93 08/28/16 21:39 71 08/28/16 19:38 100.1 98 20 138/68 97 08/28/16 16:41 90 16 136/81 96 08/28/16 14:32 88 16 131/74 98 08/28/16 12:11 96 Room Air 08/28/16 12:11 92 Room Air 08/28/16 11:15 89 17 144/73 96 Room Air 08/28/16 10:45 98.9 109 20 135/89 96 Room Air Result Diagram: 08/28/16 1130 08/28/16 1130 Other Results Laboratory Tests Test 08/28/16 08/28/16 08/29/16 11:30 18:58 02:23 White Blood Count 6.8 TH/MM3 Red Blood Count 4.32 MIL/MM3 Hemoglobin 12.8 GM/DL Hematocrit 37.9 % Mean Corpuscular Volume 87.8 FL Mean Corpuscular Hemoglobin 29.6 PG Mean Corpuscular Hemoglobin 33.7 % Concent Red Cell Distribution Width 12.9 % Platelet Count 311 TH/MM3 Mean Platelet Volume 7.0 FL Neutrophils (%) (Auto) 67.1 % Lymphocytes (%) (Auto) 25.8 % Monocytes (%) (Auto) 6.1 % Eosinophils (%) (Auto) 0.7 % Basophils (%) (Auto) 0.3 % Neutrophils # (Auto) 4.5 TH/MM3 Lymphocytes # (Auto) 1.7 TH/MM3 Monocytes # (Auto) 0.4 TH/MM3 Eosinophils # (Auto) 0.0 TH/MM3 Basophils # (Auto) 0.0 TH/MM3 CBC Comment DIFF FINAL Differential Comment Prothrombin Time 10.3 SEC Prothromb Time International 0.9 RATIO Ratio Activated Partial 24.5 SEC Thromboplast Time D-Dimer Quantitative (PE/DVT) 1.09 MG/L FEU Urine Color YELLOW Urine Turbidity CLEAR Urine pH 7.0 Urine Specific [place] 1.008 Urine Protein NEG mg/dL Urine Glucose (UA) NEG mg/dL Urine Ketones NEG mg/dL Urine Occult Blood NEG Urine Nitrite NEG Urine Bilirubin NEG Urine Urobilinogen LESS THAN 2.0 MG/DL Urine Leukocyte Esterase NEG Urine RBC LESS THAN 1 /hpf Urine WBC LESS THAN 1 /hpf Urine Bacteria RARE /hpf Microscopic Urinalysis Comment CULT NOT INDICATED Sodium Level 141 MEQ/L Potassium Level 3.6 MEQ/L Chloride Level 107 MEQ/L Carbon Dioxide Level 25.9 MEQ/L Anion Gap 8 MEQ/L Blood Urea Nitrogen 9 MG/DL Creatinine 0.56 MG/DL Estimat Glomerular Filtration 111 ML/MIN Rate Random Glucose 97 MG/DL Calcium Level 8.6 MG/DL Magnesium Level 2.3 MG/DL Total Bilirubin 0.4 MG/DL Aspartate Amino Transf 23 U/L (AST/SGOT) Alanine Aminotransferase 30 U/L (ALT/SGPT) Alkaline Phosphatase 59 U/L Total Protein 6.8 GM/DL Albumin 3.6 GM/DL Free Thyroxine 1.23 NG/DL Free Triiodothyronine (T3) 2.16 PG/ML pg/dL Thyroid Stimulating Hormone 0.709 uIU/ML 3rd Gen Total Creatine Kinase 84 U/L 72 U/L Troponin I LESS THAN 0.02 LESS THAN 0.02 NG/ML NG/ML Imaging Last Impressions CT Angiography 08/28/16 1236 Signed Impressions: Service Date/Time: Sunday, August 28, 2016 15:33 - CONCLUSION: Negative for pulmonary emboli. History of cardiac stent. Luther Hinton MD FACR Chest X-Ray 08/28/16 1122 Signed Impressions: Service Date/Time: Sunday, August 28, 2016 11:56 - CONCLUSION: No acute disease. No significant change has occurred. Saúl Marie MD Objective Remarks General: NAD, AAOx3 Chest: CTA Cardiac: Regular Abd: +BS, soft ND/NT Ext: No edema A/P Problem List: (1) Palpitations Status: Acute Plan: - Pt is 61 yo with CAD and previous LAD JUAN in 2013 - Pt has been having intermittent symptoms of dizziness, generalized weakness and palpitations with chest pain for several months. - She underwent LHC in 03/2016 for evaluation of these symptoms with no obstruction noted. - She had a Lexiscan 07/31 with no definite ischemia - Pt presented back to the ED on 08/28/16 with recurrent palpitations and chest pain. - No events recorded on telemetry from overnight. - Her audio visual facilities engineer, Dr. Paulino has been consulted - Pt reports that her PCP and an Tube Trailer Filler are looking into her thyroid as a possible cause as well. - Cont home meds - DVT prophylaxis with SCDs (2) Coronary artery disease Status: Chronic (3) Hypertension Status: Chronic (4) Hypothyroidism Status: Chronic Assessment and Plan Patient examined. Assessment and plan formulated with Monica Robert PA-C. I agree with the above. palpitation. discussed with dr Paulino. stop hydralazine. norvasc started. he wanted to get ct a/p to eval adrenal then d/c if negative and f/u for possible event monitor. Monica Robert August 29, 2016 08:39 Thomas Gillespie MD August 29, 2016 14:40
[2016-08-29] MEDS ORDERED: hydrALAZINE HCL 25 MG TAB PO SCH (09:00)
[2016-08-29] MEDS ORDERED: GABAPENTIN 300 MG CAP PO SCH (09:00)
--- NOTE | 2016-08-29 10:21 | MB ---
cc: LEATHA BOYD M.D. DATE OF CONSULTATION: 08/29/2016 REASON FOR CONSULTATION: Cardiology consultation for evaluation of palpitations. HISTORY OF PRESENT ILLNESS: Linda Funk is a 60-year-old woman, well-known to me she has coronary artery disease, hypertension, hyperlipidemia and obesity. She had a stent by Dr. Bee of her left anterior descending February 27, 2014. This was a 4.0 x 22 mm integrity stent. Her last cardiac catheterization was performed March 2016 showing no significant stenoses. The last nuclear stress test earlier this year showed no evidence for ischemia. She comes into the office saying that this morning she got up took her medications which included hydralazine and then felt her heart pounding, was dizzy and was lightheaded. She has she has known hypertension. She has been on metoprolol and on losartan. The losartan been increased to 50 b.i.d., Metoprolol as an increase of 75 b.i.d. She had previously had a reaction to her cardia but this is when she was . She preferred to stay on the amlodipine but had feet swelling and was switched to losartan. She is previously on thiazide diuretic but this was stopped due to low potassium. Amlodipine has not been tried with her taking an angiotensin receptor maciel. MEDICATIONS: Her other medications are charted. ALLERGIES CIPRO DARVOCET PROCARDIA SULFA ZANAFLEX. 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 PAST MEDICAL HISTORY: 1. Includes allergic rhinitis 2. Anxiety 3. Coronary artery disease 4. Cervical radiculopathy 5. Atypical chest pain. 6. esophageal reflux 7. Fibromyalgia 8. hyperlipidemia 9. Hypertension 10. thyroidism 11. inflammatory arthritis 12. lymphadenopathy 13. Obesity 14. Palpitations 15. shortness of breath 16. temporomandibular joint pain 17. Vitamin D deficiency. LABORATORY WORK UP: The had lab work including urinary metanephrine are showing some degree of abnormality. REVIEW OF SYSTEMS The review of systems otherwise negative. PHYSICAL EXAMINATION: IN GENERAL: Obese pleasant white female in no acute distress. VITAL SIGNS: Charted. HEAD, EYES, EARS, NOSE, AND THROAT: Exam unremarkable. NECK: No JVD, no bruits. CHEST: The chest is clear to auscultation. CARDIOVASCULAR SYSTEM: Cardiac exam S1-S2 regular rate and rhythm. No murmurs, gallops. ABDOMEN: Soft, nontender. No masses or organomegaly. EXTREMITIES: No clubbing, cyanosis or edema. NEUROLOGICALLY: Alert and oriented and nonfocal. RADIOLOGIC: Electrocardiogram shows no evidence for ischemia. Cardiac enzymes normal and regular labs unremarkable. IMPRESSION Palpitations. PLAN: Suspect this is most likely a side effect of her Hydralazine we will recommend discontinuation of Hydralazine. I would recommend discontinuation of hydralazine and placing with amlodipine 5 mg daily, this can always be adjusted up or down as needed for blood pressure. Hopefully the presence of losartan will prevent any edema, side effect. We will check a noncontrast abdominal CT to rule out pheochromocytoma in view of the abnormal labs she has had. I would wait a few days and then get an outpatient 24 Holter to look for evidence for arrhythmias, I doubt that she is having any type of acute coronary syndrome to my perspective, she can be discharged home later today after a CT scan. MD FARAZ Padilla/evon /9:41 AM /10:08 AM
[2016-08-29 12:06] VITALS: BP 98/61; PULSE 74; RESP 16; TEMP 97.6; O2SAT 95
--- NOTE | 2016-08-29 13:58 | EKG ---
Date Performed: 08/28/2016 Time Performed: 11:24:16 PTAGE: 61 years EKG: Sinus rhythm NONSPECIFIC T-WAVE ABNORMALITY BORDERLINE ECG PREVIOUS TRACING : 08/01/2016 21.08 Compared to prior tracing no significant change DOCTOR: John Land Interpretating Date/Time 08/29/2016 13:57:14
[2016-08-29] MEDS ORDERED: AMLO5 PO (14:03)
--- NOTE | 2016-08-29 14:03 | HHI.DCPOC ---
Discharge Care Plan Diagnosis: (1) Palpitations (2) Hypertension (3) Hypothyroidism (4) Coronary artery disease (5) Chest pain Goals to Promote Your Health * To prevent worsening of your condition and complications * To maintain your health at the optimal level Directions to Meet Your Goals Take your medications as prescribed Follow your dietary instruction Follow activity as directed Keep your appointments as scheduled Take your immunizations and boosters as scheduled If your symptoms worsen call your PCP, if no PCP go to Urgent Care Center or Emergency Room Smoking is Dangerous to Your Health. Avoid second hand smoke Call the 24-hour hour crisis hotline for domestic abuse at [place] Robert August 29, 2016 14:03
[2016-08-29 15:37] VITALS: BP 113/65; PULSE 75; RESP 18; TEMP 99.6; O2SAT 95
[2016-08-29] MEDS ORDERED: IOHEXOL 350 MG/ML 10 ML VIAL (for RAD DIAG) IV ONE (16:00)
--- NOTE | 2016-08-29 17:24 | RADRPT ---
EXAM DATE/TIME: 08/29/2016 16:07 [facility] COMPARISON: No previous studies available for comparison. INDICATIONS : Abdomen pain. ORAL CONTRAST: No oral contrast ingested. RADIATION DOSE: 10.96 CTDIvol (mGy) MEDICAL HISTORY : Hypertension. Cardiovascular disease SURGICAL HISTORY : None. ENCOUNTER: Initial ACUITY: 1 day PAIN SCALE: 4/10 LOCATION: Bilateral abdomen. TECHNIQUE: Volumetric scanning of the abdomen and pelvis was performed. Using automated exposure control and ad justment of the mA and/or kV according to patient size, radiation dose was kept as low as reasonably achievable to obtain optimal diagnostic quality images. FINDINGS: There is subsegmental atelectasis in the both bases. Trace bilateral effusions are present. The live r and spleen are free of focal defects. The gallbladder and pancreas demonstrate no abnormality. The adrenal glands are normal. The kidneys demonstrate no evidence of solid renal mass or hydronephrosis. No free fluid or abdominal masses are identified. No para-aortic adenopathy is seen. Examination of the pelvis demonstrates no evidence of free fluid or pelvic mass. No abnormally enlarg ed inguinal or retroperitoneal lymph nodes are present. The bladder is unremarkable. CONCLUSION: 1. No evidence of acute abdominal or pelvic process. No masses are identified. Jean Paul Dalton MD on August 29, 2016 at 17:20 Board Certified Radiologist. This report was verified electronically.
[2016-08-29 18:01] VITALS: PULSE 84
[2016-08-31] MEDS ORDERED: amLODIPine BESYLATE 5 MG TAB PO SCH (09:00)
== END 2016-08-29 18:34 | disposition home or self-care (01) ==
LOC: NEPE 10:44 → NEDH 16:48 → NEPGCP 19:31
PROVIDERS: ADMIT Hospitalist; ATTEND Hospitalist
DX: R00.2 Palpitations (principal); R07.9 Chest pain, unspecified; I25.10 Atherosclerotic heart disease of native coronary artery without angina pectoris; E03.9 Hypothyroidism, unspecified; I10 Essential (primary) hypertension; E78.5 Hyperlipidemia, unspecified; R42 Dizziness and giddiness; M48.02 Spinal stenosis, cervical region; Z98.1 Arthrodesis status; E66.9 Obesity, unspecified; J30.9 Allergic rhinitis, unspecified; M54.12 Radiculopathy, cervical region; K21.9 Gastro-esophageal reflux disease without esophagitis; M79.7 Fibromyalgia; R59.1 Generalized enlarged lymph nodes; R06.02 Shortness of breath; E55.9 Vitamin D deficiency, unspecified; F41.9 Anxiety disorder, unspecified; R55 Syncope and collapse; Z79.82 Long term (current) use of aspirin
CPT/HCPCS: 71010; 71275; 74177; 80053; 81001; 82550; 83735; 84439; 84443; 84481; 84484; 85025; 85379; 85610; 85730; 93005; 99285; G0378; Q9967

== ENCOUNTER 2016-10-05 09:51 | Observation (INO) | payer OTHER ==
[~2016-10-05] VITALS: Ht 167.6 cm; Wt 92.0 kg
[2016-10-05] VITALS (7 sets, daily range): BP systolic 135–150; BP diastolic 78–85; PULSE 72–76; RESP 15–18; TEMP 98.1–98.6; O2SAT 96
[~2016-10-05 09:51] MED LIST changes: +AMLO5 PO; -HYDR25TA35 PO
[2016-10-05] MEDS ORDERED: CYMB60CA PO (10:23)
[2016-10-05] MEDS ORDERED: AMLO2.5T PO (10:23)
[2016-10-05] MEDS ORDERED: ASPIRIN 81 MG CHEW TAB PO ONE (10:45)
[2016-10-05] MEDS ORDERED: SODIUM CHLORIDE 0.9% FLUSH 10 ML FLUSH IVF PRN (10:45)
--- NOTE | 2016-10-05 11:01 | PD ---
HPI Chief Complaint: Chest Pain Time Seen by Provider: 10:41 Travel History International Travel<30 days: No Contact w/Intl Traveler<30days: No Traveled to known affect area: No History of Present Illness HPI Our patient is a 61 y.o. female with a history of CAD presenting with a 1 week history of non-worsening left sided chest pain. She notes having dyspnea, occasional diaphoresis, and radiation of pain to her jaw and face that last occurred a few days ago. She describes the pain as a sharp, stabbing pain that has persisted all week. She also notes having numbness in the area of her pain, as well as non-related pain in her right lower back. She also notes having edema in her legs since her symptoms started. However, she denies nausea , vomiting, abdominal pain, or changes in urinary or bowel habits. Denies blood in urine or stool. Also denies any aggravating or alleviating factors. Because her symptoms have persisted, she called a nurse at [facility] who instructed her to come in today. She has a history of RCA stent placement in 2012, when she experienced similar symptoms as today. She is currently being followed for her CAD, hyperlipidemia, and hypertension by Dr. Paulino. She denies smoking, alcohol or drug use. She notes her father had severe CAD with numerous blockages. [facility] Past Medical History Narrative Medical HTN, Hyperlipidemia, Hypertension, CAD Hx Anticoagulant Therapy: Yes (asa 81) Blood Disorders: No Heart Rhythm Problems: Yes (CAD) Cancer: No Cardiac Catheterization: Yes (2012) Cardiovascular Problems: Yes (htn, CAD, stent) High Cholesterol: Yes Congestive Heart Failure: No Coronary Artery Disease: Yes Diminished Hearing: No Endocrine: Yes Fibromyalgia: Yes Gastrointestinal Disorders: Yes GERD: Yes Genitourinary: No Headaches: Yes Heparin Induced Thrombocytopen: No Hypertension: Yes Immune Disorder: No Musculoskeletal: Yes Neurologic: Yes Psychiatric: No Reproductive: No Respiratory: No Thyroid Disease: Yes Past Surgical History Abdominal Surgery: Yes (99' UMBILICAL HERNIA REPAIR) Cardiac Surgery: Yes (1 STENT) Section: Yes (X 1) Coronary Artery Bypass Graft: No Gynecologic Surgery: Yes (96' ) Oral Surgery: Yes (WISDOM TEETH AGE 21) Pacemaker: No Other Surgery: Yes Social History Alcohol Use: No Tobacco Use: No Substance Use: No Allergies-Medications (Allergen,Severity, Reaction): Coded Allergies: Cipro (Unverified Allergy, Severe, 10/05/16) Darvocet-N 100 (Unverified Allergy, Severe, 10/05/16) Procardia (Unverified Allergy, Severe, 10/05/16) Sulfa (Verified Allergy, Intermediate, HIVES, 10/05/16) Zanaflex (Verified Allergy, Intermediate, VOMITING, 10/05/16) Reported Meds & Prescriptions Reported Meds & Active Scripts Active Reported Cymbalta DR (Duloxetine HCl) 60 Mg Capdr 60 Mg PO BID Amlodipine (Amlodipine Besylate) 2.5 Mg Tab 2.5 Mg PO DAILY Gabapentin 600 Mg Tab 600 Mg PO DAILY Losartan (Losartan Potassium) 50 Mg Tab 50 Mg PO BID Metoprolol Tartrate 25 Mg Tab 75 Mg PO BID Levothyroxine (Levothyroxine Sodium) 75 Mcg Tab 75 Mcg PO DAILY Lansoprazole 30 Mg Capdr 30 Mg PO BID Flonase Nasal [place] (Fluticasone Nasal [place]) 50 Mcg/Act [place] 2 [place] EACH NARE DAILY PRN Linda Allergy (Fexofenadine HCl) 180 Mg Tab 180 Mg PO DAILY PRN Aviane (Levonorgestrel-Ethinyl Estradiol) 0.1-20 Mg-Mcg Tab 1 Tab PO DAILY Aspirin Adult Low Strength (Aspirin) 81 Mg Tabdr 81 Mg PO HS Review of Systems Except as stated in HPI: all other systems reviewed are Neg Physical Exam Narrative GENERAL: Alert and oriented, in her bed lying comfortably. Speaks in full sentences. In no acute distress. SKIN: Warm and dry. HEAD: Normocephalic. EYES: No scleral icterus. No injection or drainage. NECK: Supple, trachea midline. No JVD or lymphadenopathy. CARDIOVASCULAR: Regular rate and rhythm without murmurs, gallops, or rubs. No JVD or carotid bruits. RESPIRATORY: Breath sounds equal bilaterally. No accessory muscle use. GASTROINTESTINAL: Abdomen soft, diffusely tender, nondistended. Negative Funk' s sign. MUSCULOSKELETAL: No cyanosis, trace edema. BACK: Nontender without obvious deformity. No CVA tenderness. Data Data Last Documented VS Vital Signs Date Time Temp Pulse Resp B/P Pulse Ox O2 Delivery O2 Flow Rate FiO2 10/05/16 11:14 76 139/78 138/83 10/05/16 10:15 96 Room Air 10/05/16 10:15 17 10/05/16 09:52 98.6 Orders Electrocardiogram (10/05/16 10:20) Electrocardiogram (10/05/16 10:41) Basic Metabolic Panel (Bmp) (10/05/16 10:41) Ckmb (Isoenzyme) Profile (10/05/16 10:41) Complete Blood Count With Diff (10/05/16 10:41) Magnesium (Mg) (10/05/16 10:41) Prothrombin Time / Inr (Pt) (10/05/16 10:41) Act Partial Throm Time (Ptt) (10/05/16 10:41) Troponin I (10/05/16 10:41) Chest, Single Ap (10/05/16 10:41) Ecg Monitoring (10/05/16 10:41) Bilateral Bp Monitoring (10/05/16 10:41) Iv Access Insert/Monitor (10/05/16 10:41) Oximetry (10/05/16 10:41) Oxygen Administration (10/05/16 10:41) Aspirin Chew (Aspirin Chew) (10/05/16 10:45) Sodium Chloride 0.9% Flush (Ns Flush) (10/05/16 10:45) CKMB (10/05/16 10:50) CKMB% (10/05/16 10:50) Admit Order (Ed Use Only) (10/05/16 12:46) Labs Laboratory Tests Test 10/05/16 10:50 White Blood Count 6.9 TH/MM3 Red Blood Count 4.48 MIL/MM3 Hemoglobin 13.8 GM/DL Hematocrit 39.9 % Mean Corpuscular Volume 89.1 FL Mean Corpuscular Hemoglobin 30.8 PG Mean Corpuscular Hemoglobin 34.5 % Concent Red Cell Distribution Width 14.0 % Platelet Count 303 TH/MM3 Mean Platelet Volume 7.1 FL Neutrophils (%) (Auto) 54.7 % Lymphocytes (%) (Auto) 36.3 % Monocytes (%) (Auto) 6.7 % Eosinophils (%) (Auto) 1.6 % Basophils (%) (Auto) 0.7 % Neutrophils # (Auto) 3.8 TH/MM3 Lymphocytes # (Auto) 2.5 TH/MM3 Monocytes # (Auto) 0.5 TH/MM3 Eosinophils # (Auto) 0.1 TH/MM3 Basophils # (Auto) 0.0 TH/MM3 CBC Comment DIFF FINAL Differential Comment Prothrombin Time 9.7 SEC Prothromb Time International 0.9 RATIO Ratio Activated Partial 25.4 SEC Thromboplast Time Sodium Level 139 MEQ/L Potassium Level 3.4 MEQ/L Chloride Level 103 MEQ/L Carbon Dioxide Level 26.7 MEQ/L Anion Gap 9 MEQ/L Blood Urea Nitrogen 13 MG/DL Creatinine 0.56 MG/DL Estimat Glomerular Filtration 111 ML/MIN Rate Random Glucose 93 MG/DL Calcium Level 9.0 MG/DL Magnesium Level 2.4 MG/DL Total Creatine Kinase 187 U/L Creatine Kinase MB 2.5 NG/ML Troponin I LESS THAN 0.02 NG/ML MDM Medical Decision Making Medical Screen Exam Complete: Yes Emergency Medical Condition: Yes Differential Diagnosis IN, costochondritis, PE, cholecystitis Narrative Course Patient agreed to undergo cardiac workup to further investigate her symptoms. Diagnosis Primary Impression: Chest pain Additional Impressions: Coronary artery disease Hypertension Palpitations Hypokalemia Admitting Information Admitting Physician Requests: Observation Wilson Butt MD Oct 05, 2016 11:01
--- NOTE | 2016-10-05 11:19 | RADRPT ---
EXAM DATE/TIME: 10/05/2016 10:41 [facility] COMPARISON: CT ABDOMEN & PELVIS W CONTRAST, August 29, 2016, 16:07. CHEST SINGLE AP, August 28, 2016, 11:56. INDICATIONS : Chest pain for 1 week. MEDICAL HISTORY : Hypertension. Coronary artery disease. Irregular heartbeat. SURGICAL HISTORY : Coronary stent. ENCOUNTER: Initial ACUITY: 1 week PAIN SCORE: 7/10 LOCATION: Bilateral chest FINDINGS: The heart is normal in size. There is dilation of the aortic root which is similar to previous dated 08/28/16. The mediastinal contours are otherwise unremarkable. The visualized pulmonary parenchyma is clear. The visualized bony structures are grossly intact. CONCLUSION: 1. Dilation of aortic root similar previous exam. 2. The lungs are clear. Adrian Hinton MD on October 05, 2016 at 11:15 Board Certified Radiologist. This report was verified electronically.
[2016-10-05 11:26] LABS: AUTOMATED NEUTROPHIL # 3.8 TH/MM3 (1.8-7.7); BASOPHIL % 0.7 % (0.0-2.0); EOSINOPHIL # 0.1 TH/MM3 (0-0.4); EOSINOPHIL % 1.6 % (0.0-4.0); HEMATOCRIT 39.9 % (35.0-46.0); HEMO FLAGS DIFF FINAL; LYMPH % 36.3 % (9.0-44.0); LYMPHOCYTE # 2.5 TH/MM3 (1.0-4.8); MEAN CELL VOLUME 89.1 FL (80.0-100.0); MEAN CORPUSCULAR HEMOGLOBIN 30.8 PG (27.0-34.0); MEAN CORPUSCULAR HGB CONC 34.5 % (32.0-36.0); MONO % 6.7 % (0.0-8.0); NEUT % 54.7 % (16.0-70.0); PLATELET COUNT 303 TH/MM3 (150-450); RED BLOOD COUNT 4.48 MIL/MM3 (4.00-5.30); WHITE BLOOD COUNT 6.9 TH/MM3 (4.0-11.0)
[2016-10-05 11:34] LABS: APTT (PATIENT) 25.4 SEC (24.3-30.1); INTERNATIONAL NORMALIZED RATIO 0.9 RATIO; PROTHROMBIN TIME - PATIENT 9.7 SEC (9.8-11.6)
[2016-10-05 11:52] LABS: CREATINE KINASE 187 U/L (26-192)
[2016-10-05 11:56] LABS: ANION GAP 9 MEQ/L (5-15); BICARBONATE 26.7 MEQ/L (21.0-32.0); BLOOD UREA NITROGEN 13 MG/DL (7-18); CHLORIDE 103 MEQ/L (98-107); GLOMERULAR FILTRATION RATE 111 ML/MIN (>89); MAGNESIUM 2.4 MG/DL (1.5-2.5); POTASSIUM 3.4 MEQ/L (3.5-5.1); SODIUM (NA) 139 MEQ/L (136-145)
[2016-10-05 12:15] LABS: CKMB 2.5 NG/ML (0.5-3.6)
[2016-10-05] MEDS ORDERED: SODIUM CHLORIDE 0.9% FLUSH 5 ML FLUSH IVF PRN (13:45)
[2016-10-05] MEDS ORDERED: ONDANSETRON HCL 4 MG/2 ML VIAL IV PRN (13:45)
[2016-10-05] MEDS ORDERED: POTASSIUM CHLORIDE 20 MEQ CONTROLLED RELEASE TAB PO ONE (13:45)
[2016-10-05] MEDS ORDERED: ACETAMINOPHEN/HYDROcodone 325 MG/7.5 MG TAB PO PRN (13:45)
--- NOTE | 2016-10-05 13:56 | EKG ---
Date Performed: 10/05/2016 Time Performed: 10:20:26 PTAGE: 61 years EKG: Sinus rhythm LOW QRS VOLTAGE IN PRECORDIAL LEADS MINIMAL VOLTAGE CRITERIA FOR LVH, CONSIDER NORMAL VARIANT BORDER LINE ECG Compared to prior tracing no significant change PREVIOUS TRACING : 08/19/2016 23.26 DOCTOR: Michelle Carney Interpretating Date/Time 10/05/2016 13:49:28
[2016-10-05] MEDS ORDERED: POTASSIUM CHLORIDE 10 MEQ CONTROLLED RELEASE TAB PO ONE (14:00)
--- NOTE | 2016-10-05 14:03 | HHI.HP ---
[facility] Primary Care Physician Terry Hobson M.D. Chief Complaint Chest pain and elevated blood pressure History of Present Illness This is a 61-year-old female that presents to ED via private vehicle with her daughter with history of CAD and hypertension with a complaint of her blood pressure elevated for the last week and a half and having a constant left and right-sided chest discomfort since yesterday. The discomfort in her chest as described as a sharp and tight sensation. She also has had intermittently a sensation of her heart fluttering. No shortness breath, nausea, or diaphoresis. She states her blood pressures have been running high also. As high as 170s. She saw her aerospace project manager Dr. Tony Paulino last Sunday and also reviewed a Holter monitor that was performed about 2 weeks prior. She apparently had SVT and atrial fibrillation on Holter monitor. She does not know anymore the specifics of it. Also last Sunday her blood pressure was discussed. They contemplating increasing the amlodipine to 5 mg at night but decided to wait and see how her blood pressure responds. She also is being evaluated by parole agent to determine if her blood pressure issues might be related to an endocrine abnormality. Patient was in the chest pain center in July of this year and had a nonischemic Lexiscan. She has history of a stent to the LAD February 27, 2014. She had a cardiac catheterization March 20, 2016 that revealed 10% in-stent restenosis. Patient denies recent illnesses. Denies fevers or chills. Review of Systems General: Patient denies fevers, chills recent, and recent travel HEENT: Patient denies headache, sore throat, difficulty swallowing. Cardiovascular: Has the chest discomfort as mentioned above. Had sensation of her heart fluttering. No diaphoresis. No syncope. Respiratory: Denies shortness of breath or inspirational chest discomfort. Denies coughing wheezing or hemoptysis. GI: Patient denies nausea, vomiting, diarrhea, abdominal pain, bloody stools. Musculoskeletal: Patient denies joint pain or edema. Denies calf pain or edema. Neurovascular: Patient denies numbness, tingling, weakness in extremities. Denies headache. Endocrine: Denies polyuria and polydipsia. Hematologic: Denies easy bruising. Skin: Denies rash or itching. Past Family Social History Allergies: Coded Allergies: Cipro (Unverified Allergy, Severe, 10/05/16) Darvocet-N 100 (Unverified Allergy, Severe, 10/05/16) Procardia (Unverified Allergy, Severe, 10/05/16) Sulfa (Verified Allergy, Intermediate, HIVES, 10/05/16) Zanaflex (Verified Allergy, Intermediate, VOMITING, 10/05/16) Past Medical History CAD. Hypertension. Hypothyroidism. Questionable hyperlipidemia. She was on a statin after getting a stent in 2013 but states she's been off the statins for least 1 year. Denies diabetes. Past Surgical History Cardiac catheterizations. One with an intervention in the most recently without intervention. Reported Medications Reported Meds & Active Scripts Active Reported Cymbalta DR (Duloxetine HCl) 60 Mg Capdr 60 Mg PO BID Amlodipine (Amlodipine Besylate) 2.5 Mg Tab 2.5 Mg PO DAILY Gabapentin 600 Mg Tab 600 Mg PO DAILY Losartan (Losartan Potassium) 50 Mg Tab 50 Mg PO BID Metoprolol Tartrate 25 Mg Tab 75 Mg PO BID Levothyroxine (Levothyroxine Sodium) 75 Mcg Tab 75 Mcg PO DAILY Lansoprazole 30 Mg Capdr 30 Mg PO BID Flonase Nasal [place] (Fluticasone Nasal [place]) 50 Mcg/Act [place] 2 [place] EACH NARE DAILY PRN Linda Allergy (Fexofenadine HCl) 180 Mg Tab 180 Mg PO DAILY PRN Aviane (Levonorgestrel-Ethinyl Estradiol) 0.1-20 Mg-Mcg Tab 1 Tab PO DAILY Aspirin Adult Low Strength (Aspirin) 81 Mg Tabdr 81 Mg PO HS Active Ordered Medications Current Medications Medications (Trade) Dose Ordered Sig/Charity Route Start Time Stop Time Status Last Admin (NS Flush) 2 ml UNSCH PRN IVF 10/05/16 10:45 Social History Patient is a lifetime nonsmoker. Physical Exam Vital Signs Vital Signs Date Time Temp Pulse Resp B/P Pulse Ox O2 Delivery O2 Flow Rate FiO2 10/05/16 13:00 75 18 135/81 96 Room Air 10/05/16 11:14 76 139/78 138/83 10/05/16 10:15 96 Room Air 10/05/16 10:15 17 96 Room Air 10/05/16 09:52 98.6 76 15 150/85 96 Physical Exam GENERAL: This is a well-nourished, well-developed patient, in no apparent distress. Patient speaks in clear complete sentences. Patient is pleasant. HEENT: Head is atraumatic and normocephalic. Neck is supple without lymphadenopathy and trachea is midline. No JVD or carotid bruits. CARDIOVASCULAR: Regular rate and rhythm without murmurs, gallops, or rubs. RESPIRATORY: Clear to auscultation. Breath sounds equal bilaterally. No wheezes , rales, or rhonchi. Chest wall is tender worsening the discomfort she has had since yesterday. No use of accessory muscles. GASTROINTESTINAL: Abdomen is nontender, nondistended. Abdomen soft. No obvious pulsatile mass or bruit. No CVA tenderness. Strong femoral pulses bilaterally. Normal bowel sounds in all quadrants. MUSCULOSKELETAL: Patient is moving upper and lower extremities freely. No calf tenderness or edema, no Homans sign. Strong pulses in upper and lower extremities. NEUROLOGICAL: Patient is alert and oriented. Cranial nerves 2-12 are grossly intact. No focal deficits and speech is clear. SKIN: No rash and turgor is normal. Laboratory Laboratory Tests Test 10/05/16 10:50 White Blood Count 6.9 Red Blood Count 4.48 Hemoglobin 13.8 Hematocrit 39.9 Mean Corpuscular Volume 89.1 Mean Corpuscular Hemoglobin 30.8 Mean Corpuscular Hemoglobin 34.5 Concent Red Cell Distribution Width 14.0 Platelet Count 303 Mean Platelet Volume 7.1 Neutrophils (%) (Auto) 54.7 Lymphocytes (%) (Auto) 36.3 Monocytes (%) (Auto) 6.7 Eosinophils (%) (Auto) 1.6 Basophils (%) (Auto) 0.7 Neutrophils # (Auto) 3.8 Lymphocytes # (Auto) 2.5 Monocytes # (Auto) 0.5 Eosinophils # (Auto) 0.1 Basophils # (Auto) 0.0 CBC Comment DIFF FINAL Differential Comment Prothrombin Time 9.7 Prothromb Time International 0.9 Ratio Activated Partial 25.4 Thromboplast Time Sodium Level 139 Potassium Level 3.4 Chloride Level 103 Carbon Dioxide Level 26.7 Anion Gap 9 Blood Urea Nitrogen 13 Creatinine 0.56 Estimat Glomerular Filtration 111 Rate Random Glucose 93 Calcium Level 9.0 Magnesium Level 2.4 Total Creatine Kinase 187 Creatine Kinase MB 2.5 Troponin I LESS THAN 0.02 Result Diagram: 10/05/16 1050 10/05/16 1050 Imaging Last 24 hours Impressions Chest X-Ray 10/05/16 1041 Signed Impressions: Service Date/Time: September 10:41 - CONCLUSION: 1. Dilation of aortic root similar previous exam. 2. The lungs are clear. Adrian Hinton MD Course Initial EKG is sinus rhythm rate of [address] segment depressions or elevations. Assessment and Plan Assessment and Plan * Atypical chest pain: Patient will continue to have serial cardiac enzymes and EKGs for ruling out purposes. She had a recent nonischemic Lexiscan July 2016. She will be seen by Dr. Dean cardiology in the chest pain center. Further plan to be terminated after her evaluation as well as after speaking with the patient's aerospace project manager Dr. Tony Paulino. * Hypertension: We'll discuss further with Dr. Dean and with Dr. Tony Paulino. Apparently the suggestion was to increase amlodipine but patient has raised her concerns about edema in her legs with an increased amlodipine dose. * CAD: Patient history of a stent. She has a nonischemic Lexiscan July this year. She will continue to follow-up with her aerospace project manager. She needs discuss with her aerospace project manager in therapy. Currently no statin and her medication list and patient is not aware of contraindication. * Hypothyroidism: Continue current medication. Patient is stable at this time. She is agreeable to this plan. [place] Oct 05, 2016 14:02
[2016-10-05 15:27] LABS: CREATINE KINASE 151 U/L (26-192)
[2016-10-05 15:40] LABS: CKMB 1.9 NG/ML (0.5-3.6)
[2016-10-05] MEDS ORDERED: TRIA37.53 PO (16:57)
--- NOTE | 2016-10-05 17:00 | HHI.DCPOC ---
Discharge Care Plan Diagnosis: (1) Chest pain, atypical (2) Hypertension (3) Hypokalemia (4) Coronary artery disease (5) H/O heart artery stent (6) Palpitations (7) Hypothyroidism Goals to Promote Your Health DISCUSS TAKING CHOLESTEROL MEDICATIONS WITH DR BOYD. HAVE ELECTROLYTES RECHECKED AT A LAB IN ONE WEEK AND DR BOYD WILL FOLLOW THOSE RESULTS. * To prevent worsening of your condition and complications * To maintain your health at the optimal level Directions to Meet Your Goals Take your medications as prescribed Follow your dietary instruction Follow activity as directed Keep your appointments as scheduled Take your immunizations and boosters as scheduled If your symptoms worsen call your PCP, if no PCP go to Urgent Care Center or Emergency Room Smoking is Dangerous to Your Health. Avoid second hand smoke Call the 24-hour hour crisis hotline for domestic abuse at [place] Oct 05, 2016 17:00
[2016-10-05 17:18] LABS: CREATINE KINASE 142 U/L (26-192)
[2016-10-05 17:30] LABS: CKMB 1.8 NG/ML (0.5-3.6)
[2016-10-05] MEDS ORDERED: LOSARTAN 50 MG TAB PO SCH (21:00)
[2016-10-05] MEDS ORDERED: SODIUM CHLORIDE 0.9% FLUSH 5 ML FLUSH IVF SCH (21:00)
[2016-10-05] MEDS ORDERED: DULoxetine HCl DR 60 MG CAP PO SCH (21:00)
[2016-10-05] MEDS ORDERED: METOPROLOL TARTRATE 25 MG TAB PO SCH (21:00)
[2016-10-06] MEDS ORDERED: LEVOTHYROXINE SODIUM 75 MCG TAB PO SCH (06:00)
[2016-10-06] MEDS ORDERED: PANTOPRAZOLE SOD 40 MG DELAYED RELEASE TAB PO SCH (09:00)
[2016-10-06] MEDS ORDERED: ASPIRIN 325 MG TAB PO SCH (09:00)
[2016-10-06] MEDS ORDERED: GABAPENTIN 300 MG CAP PO SCH (09:00)
--- NOTE | 2016-10-06 15:35 | EKG ---
Date Performed: 10/05/2016 Time Performed: 17:06:40 PTAGE: 61 years EKG: Sinus rhythm NONSPECIFIC T-WAVE ABNORMALITY BORDERLINE ECG Since PREVIOUS TRACING , no significant change noted PREVIOUS TRACIN10/05/2016 13.48 DOCTOR: Rashmi Dean Interpretating Date/Time 10/06/2016 15:34:03
--- NOTE | 2016-10-06 15:35 | EKG ---
Date Performed: 10/05/2016 Time Performed: 13:48:44 PTAGE: 61 years EKG: Sinus rhythm MINIMAL VOLTAGE CRITERIA FOR LVH, CONSIDER NORMAL VARIANT NONSPECIFIC T-WAVE ABNORMALITY BORDERLINE ECG Since PREVIOUS TRACING , no significant change noted PREVIOUS TRACIN10/05/2016 10.20 DOCTOR: Rashmi Dean Interpretating Date/Time 10/06/2016 15:34:19
== END 2016-10-05 19:05 | disposition home or self-care (01) ==
LOC: NEPE 09:51 → NEDA 12:49 → NEPHCDU 13:40
PROVIDERS: ADMIT Internal Medicine Interventional Cardiology; ATTEND Internal Medicine Interventional Cardiology
DX: R07.89 Other chest pain (principal); I10 Essential (primary) hypertension; I25.10 Atherosclerotic heart disease of native coronary artery without angina pectoris; E03.9 Hypothyroidism, unspecified; E78.00 Pure hypercholesterolemia, unspecified; E78.5 Hyperlipidemia, unspecified; K21.9 Gastro-esophageal reflux disease without esophagitis; M79.7 Fibromyalgia; Z82.49 Family history of ischemic heart disease and other diseases of the circulatory system; Z95.5 Presence of coronary angioplasty implant and graft; Z88.1 Allergy status to other antibiotic agents; Z88.5 Allergy status to narcotic agent; Z88.2 Allergy status to sulfonamides; Z88.8 Allergy status to other drugs, medicaments and biological substances; Z79.82 Long term (current) use of aspirin
CPT/HCPCS: 71010; 80048; 82550; 82552; 83735; 84484; 85025; 85610; 85730; 93005; 99285; G0378

== ENCOUNTER 2017-08-30 16:16 | Observation (INO) | payer BC, OTHER ==
[~2017-08-30] VITALS: Ht 177.8 cm; Wt 93.0 kg
[2017-08-30] VITALS (8 sets, daily range): BP systolic 140–152; BP diastolic 67–88; PULSE 70–107; RESP 16–20; TEMP 98.1–98.3; O2SAT 93–98
[~2017-08-30 16:16] MED LIST changes: -ACET-703 PO; +AMLO2.5T PO; -AMLO5 PO; -ASPI1TAB91 PO; +ASPI81TA16 PO; +CYMB60CA PO; +TRIA37.53 PO
[2017-08-30] MEDS ORDERED: IOHEXOL 350 MG/ML 10 ML VIAL (for RAD DIAG) IVCONTRAST ONE (16:17)
[2017-08-30] MEDS ORDERED: SODIUM CHLORIDE 0.9% FLUSH 10 ML FLUSH IVF PRN (16:30)
--- NOTE | 2017-08-30 16:44 | RADRPT ---
EXAM DATE/TIME: 08/30/2017 16:26 [facility] COMPARISON: CHEST SINGLE AP, October 05, 2016, 10:41. INDICATIONS : Chest pain. MEDICAL HISTORY : Hypertension. Coronary artery disease. Thoracic aneurysm. A-fib. Fybromyalgia. Neuropathy. Hypoglycem ia. SURGICAL HISTORY : Coronary stent. C-spine diskectomy. ENCOUNTER: Initial ACUITY: 1 day PAIN SCORE: 8/10 LOCATION: Bilateral chest FINDINGS: No new focal pleural or parenchymal opacities. Cardiac silhouette is within normal limits. Redemonstr ation of prominent aortic root similar to previous exams. Bony thorax is intact. CONCLUSION: 1. Stable dilatation of the aortic root. 2. No acute abnormality or significant interval change. Vidal Jackson MD on August 30, 2017 at 16:41 Board Certified Radiologist. This report was verified electronically.
[2017-08-30 16:50] LABS: AUTOMATED NEUTROPHIL # 2.6 TH/MM3 (1.8-7.7); BASOPHIL # 0.1 TH/MM3 (0-0.2); BASOPHIL % 1.4 % (0.0-2.0); EOSINOPHIL # 0.1 TH/MM3 (0-0.4); EOSINOPHIL % 1.3 % (0.0-4.0); HEMATOCRIT 39.7 % (35.0-46.0); HEMOGLOBIN 13.7 GM/DL (11.6-15.3); LYMPH % 45.5 % (9.0-44.0); LYMPHOCYTE # 2.7 TH/MM3 (1.0-4.8); MEAN CELL VOLUME 88.5 FL (80.0-100.0); MEAN CORPUSCULAR HEMOGLOBIN 30.6 PG (27.0-34.0); MEAN CORPUSCULAR HGB CONC 34.5 % (32.0-36.0); MEAN PLATELET VOLUME 6.9 FL (7.0-11.0); MONO % 7.8 % (0.0-8.0); MONOCYTE # 0.5 TH/MM3 (0-0.9); PLATELET COUNT 293 TH/MM3 (150-450); RED BLOOD COUNT 4.48 MIL/MM3 (4.00-5.30); RED CELL DISTRIBUTION WIDTH 13.5 % (11.6-17.2)
[2017-08-30] MEDS ORDERED: MORPHINE SULFATE 4 MG/ML INJ IV PUSH ONE (17:00)
[2017-08-30] MEDS ORDERED: ONDANSETRON ODT 4 MG TAB PO ONE (17:00)
[2017-08-30 17:17] LABS: BLOOD UREA NITROGEN 8 MG/DL (7-18); CALCIUM 8.3 MG/DL (8.5-10.1); CHLORIDE 107 MEQ/L (98-107); CREATININE 0.68 MG/DL (0.50-1.00); GLOMERULAR FILTRATION RATE 88 ML/MIN (>89); GLUCOSE,RANDOM 152 MG/DL (74-106); MAGNESIUM 2.3 MG/DL (1.5-2.5); SODIUM (NA) 142 MEQ/L (136-145)
[2017-08-30 17:21] LABS: TROPONIN I LESS THAN 0.02 NG/ML (0.02-0.05)
[2017-08-30] MEDS ORDERED: GABA300C5 PO (18:05)
[2017-08-30] MEDS ORDERED: AMLO5TAB2 PO (18:05)
[2017-08-30] MEDS ORDERED: CYCL10TA PO (18:05)
--- NOTE | 2017-08-30 19:32 | RADRPT ---
EXAM DATE/TIME: 08/30/2017 18:32 [facility] COMPARISON: No previous studies available for comparison. INDICATIONS : Chest palpitations with known thoracic aortic aneurysm. IV CONTRAST: 100 cc Omnipaque 350 (iohexol) IV RADIATION DOSE: 17.11 CTDIvol (mGy) MEDICAL HISTORY : Cardiovascular disease. Hypertension. Thoracic aneurysm. SURGICAL HISTORY : section. ENCOUNTER: Initial ACUITY: 1 day PAIN SCALE: 5/10 LOCATION: chest TECHNIQUE: Volumetric scanning was performed using a multi-row detector CT scanner. The data was post processed with a variety of visualization algorithms including full volume maximum intensity projection, multi -planar sliding thin slab reformation, curved planar reformation, and surface rendering techniques. Using automated exposure control and adjustment of the mA and/or kV according to patient size, radiat ion dose was kept as low as reasonably achievable to obtain optimal diagnostic quality images. DICOM format image data is available electronically for review and comparison. FINDINGS: LUNGS: There is no consolidation or pneumothorax. No concerning pulmonary nodule is visualized. No pleural fluid is present. MEDIASTINUM: No abnormally enlarged lymph nodes by CT criteria. No axillary or hilar abnormalities are identified. ABDOMEN: The liver and spleen are free of focal defects. There some lobulation of the spleen without focal mas s. There is low-density seen throughout the liver. The gallbladder and pancreas demonstrate no abnorm ality. The adrenal glands are normal. The kidneys demonstrate no evidence of solid renal mass or hydr onephrosis. There is a small 3 mm nonobstructing left renal stone. No free fluid or abdominal masses are identified. No para-aortic adenopathy is seen. Colonic diverticula are present. There is degenera tive change in the lumbar spine. PELVIS: No evidence of free fluid or pelvic mass. No abnormally enlarged inguinal or retroperitoneal lymph no carisa are present. The bladder is unremarkable. THORACIC AORTA: The thoracic aortic root is normal with normal branching of the great vessels. There is aneurysmal d ilatation of the ascending aorta measuring 4.5 cm. There is no evidence of dissection. There is incre ased density at the LAD related to either calcification or stent. ABDOMINAL AORTA: The aorta is normal in caliber without aneurysm or dissection. The renal arteries are patent bilater ally. The proximal celiac and superior mesenteric arteries are patent and normal in diameter. PELVIC VESSELS: The internal iliac and external iliac vessels are patent without aneurysm or stenosis. CONCLUSION: 1. Aneurysmal dilatation of the ascending thoracic aorta measuring 4.5 cm. 2. No dissection or abdominal aneurysm is seen. 3. Hepatic steatosis. 4. Small 3 mm nonobstructing left renal stone. 5. Colonic diverticula. Jarod Carbone MD on August 30, 2017 at 19:22 Board Certified Radiologist. This report was verified electronically.
[2017-08-30] MEDS ORDERED: SODIUM CHLORIDE 0.9% FLUSH 10 ML FLUSH IV FLUSH PRN (20:00)
--- NOTE | 2017-08-30 20:06 | PD ---
HPI Chief Complaint: Chest Pain Time Seen by Provider: 16:20 Travel History International Travel<30 days: No Contact w/Intl Traveler<30days: No Traveled to known affect area: No History of Present Illness HPI 62-year-old female with a history of coronary disease, thoracic aortic aneurysm , presents today with complaints of chest pain. Patient reports the pain as sharp. She also reports it is between her shoulder blades. She reports associated nausea and shortness of breath. There is no report of dizziness. There is no reported lightheadedness. Patient states that she has had this pain intermittent for quite some time. She was worried that this may be her aortic aneurysm because she read on Web MD that these could be some of the symptoms. The patient reports that she has a new insurance and was being seen by Dr. Paulino and Dr. Hobson. She states that when she left [facility] , she was told that she could no longer see them. She now understands that they are on her new healthcare plan. She has not seen them in quite some time. PFSH Past Medical History Hx Anticoagulant Therapy: Yes (asa 81) Blood Disorders: No Heart Rhythm Problems: Yes Cancer: No Cardiac Catheterization: Yes (stent) Cardiovascular Problems: Yes High Cholesterol: No Chest Pain: Yes Congestive Heart Failure: No Coronary Artery Disease: Yes Diabetes: No Diminished Hearing: No Endocrine: No Fibromyalgia: Yes Gastrointestinal Disorders: Yes GERD: Yes Genitourinary: No Headaches: Yes Heparin Induced Thrombocytopen: No Hypertension: Yes Immune Disorder: No Musculoskeletal: No Neurologic: No Psychiatric: No Reproductive: No Respiratory: No Thyroid Disease: Yes (hypothyroid) ?: Unknown LMP: last period a few months ago. Past Surgical History Abdominal Surgery: Yes (99' UMBILICAL HERNIA REPAIR) Cardiac Surgery: Yes (1 STENT) Section: Yes (X 1) Coronary Artery Bypass Graft: No Coronary Stent: Yes Gynecologic Surgery: Yes (96' ) Oral Surgery: Yes (WISDOM TEETH AGE 21) Pacemaker: No Other Surgery: Yes Family History Family Myocardial Infarction: Yes Social History Alcohol Use: No Tobacco Use: No Substance Use: No Allergies-Medications (Allergen,Severity, Reaction): Coded Allergies: acetaminophen (Unverified Allergy, Severe, 08/30/17) ciprofloxacin (Unverified Allergy, Severe, 08/30/17) nifedipine (Unverified Allergy, Severe, 08/30/17) propoxyphene (Unverified Allergy, Severe, 08/30/17) Sulfa (Sulfonamide Antibiotics) (Unverified Allergy, Intermediate, HIVES, 08/30/17) tizanidine (Unverified Allergy, Intermediate, VOMITING, 08/30/17) Reported Meds & Prescriptions Reported Meds & Active Scripts Active Reported Flexeril (Cyclobenzaprine HCl) 10 Mg Tab 10 Mg PO TID Gabapentin 300 Mg Cap 300 Mg PO TID Amlodipine (Amlodipine Besylate) 5 Mg Tab 5 Mg PO DAILY Cymbalta DR (Duloxetine HCl) 60 Mg Capdr 60 Mg PO BID Losartan (Losartan Potassium) 50 Mg Tab 50 Mg PO BID Metoprolol Tartrate 25 Mg Tab 75 Mg PO BID Levothyroxine (Levothyroxine Sodium) 75 Mcg Tab 75 Mcg PO DAILY Lansoprazole 30 Mg Capdr 30 Mg PO BID Flonase Nasal [place] (Fluticasone Nasal [place]) 50 Mcg/Act [place] 2 [place] EACH NARE DAILY PRN Linda Allergy (Fexofenadine HCl) 180 Mg Tab 180 Mg PO DAILY PRN Aviane (Levonorgestrel-Ethinyl Estradiol) 0.1-20 Mg-Mcg Tab 1 Tab PO DAILY Aspirin Adult Low Strength (Aspirin) 81 Mg Tabdr 81 Mg PO HS Review of Systems Except as stated in HPI: all other systems reviewed are Neg General / Constitutional: No: Fever, Chills HENT: No: Headaches, Neck Pain Cardiovascular: Positive: Chest Pain or Discomfort, Palpitations, No: Irregular Rhythm Respiratory: Positive: Shortness of Breath, No: Cough Gastrointestinal: No: Nausea, Vomiting, Abdominal Pain Musculoskeletal: Positive: Pain (Between shoulder blades), No: Weakness Neurologic: No: Weakness, Dizziness, Headache Physical Exam Narrative GENERAL: Well-developed well-nourished female in no acute respiratory distress. SKIN: Focused skin assessment warm/dry. HEAD: Atraumatic. Normocephalic. EYES: Pupils equal and round. No scleral icterus. No injection or drainage. ENT: No nasal bleeding or discharge. Mucous membranes pink and moist. NECK: Trachea midline. Supple. CARDIOVASCULAR: Regular rate and rhythm. No murmur appreciated. RESPIRATORY: No accessory muscle use. Clear to auscultation. Breath sounds equal bilaterally. GASTROINTESTINAL: Abdomen soft, non-tender, nondistended. Hepatic and splenic margins not palpable. MUSCULOSKELETAL: No obvious deformities. No clubbing. No cyanosis. No edema. NEUROLOGICAL: Awake and alert. No obvious cranial nerve deficits. Motor grossly within normal limits. Normal speech. PSYCHIATRIC: Anxious appearing. Data Data Last Documented VS Vital Signs Date Time Temp Pulse Resp B/P (MAP) Pulse Ox O2 Delivery O2 Flow Rate FiO2 08/30/17 18:25 107 20 146/67 (93) 95 Room Air 2.00 08/30/17 16:19 98.3 Orders Orders Electrocardiogram (08/30/17 16:21) Basic Metabolic Panel (Bmp) (08/30/17 16:21) Ckmb (Isoenzyme) Profile (08/30/17 16:) Complete Blood Count With Diff (08/30/17 16:) Magnesium (Mg) (08/30/17 16:21) Prothrombin Time / Inr (Pt) (08/30/17 16:) Act Partial Throm Time (Ptt) (08/30/17:) Troponin I (08/30/17 16:) Chest, Single Ap (08/30/17 16:21) Ecg Monitoring (08/30/17 16:21) Bilateral Bp Monitoring (08/30/17 16:) Iv Access Insert/Monitor (08/30/17 16:) Oximetry (08/30/17 16:21) Oxygen Administration (08/30/17 16:21) Sodium Chloride 0.9% Flush (Ns Flush) (08/30/17 16:30) Morphine Inj (Morphine Inj) (08/30/17 17:00) Ondansetron Odt (Zofran Odt) (08/30/17 17:00) Cta Thor Abd Aorta W Iv C W3d (08/30/17 ) CKMB (08/30/17 16:30) CKMB% (08/30/17 16:30) Iohexol 350 Inj (Omnipaque 350 Inj) (08/30/17 16:17) Labs Laboratory Tests Test 08/30/17 16:30 White Blood Count 6.0 TH/MM3 Red Blood Count 4.48 MIL/MM3 Hemoglobin 13.7 GM/DL Hematocrit 39.7 % Mean Corpuscular Volume 88.5 FL Mean Corpuscular Hemoglobin 30.6 PG Mean Corpuscular Hemoglobin Concent 34.5 % Red Cell Distribution Width 13.5 % Platelet Count 293 TH/MM3 Mean Platelet Volume 6.9 FL Neutrophils (%) (Auto) 44.0 % Lymphocytes (%) (Auto) 45.5 % Monocytes (%) (Auto) 7.8 % Eosinophils (%) (Auto) 1.3 % Basophils (%) (Auto) 1.4 % Neutrophils # (Auto) 2.6 TH/MM3 Lymphocytes # (Auto) 2.7 TH/MM3 Monocytes # (Auto) 0.5 TH/MM3 Eosinophils # (Auto) 0.1 TH/MM3 Basophils # (Auto) 0.1 TH/MM3 CBC Comment DIFF FINAL Differential Comment Prothrombin Time 10.0 SEC Prothromb Time International Ratio 1.0 RATIO Activated Partial Thromboplast Time 23.0 SEC Blood Urea Nitrogen 8 MG/DL Creatinine 0.68 MG/DL Random Glucose 152 MG/DL Calcium Level 8.3 MG/DL Magnesium Level 2.3 MG/DL Sodium Level 142 MEQ/L Potassium Level 3.5 MEQ/L Chloride Level 107 MEQ/L Carbon Dioxide Level 25.0 MEQ/L Anion Gap 10 MEQ/L Estimat Glomerular Filtration Rate 88 ML/MIN Total Creatine Kinase 260 U/L Creatine Kinase MB 2.9 NG/ML Creatine Kinase MB % 1.1 % Troponin I LESS THAN 0.02 NG/ML MDM Medical Decision Making Medical Screen Exam Complete: Yes Emergency Medical Condition: Yes Differential Diagnosis ACS versus leaking thoracic aorta aneurysm versus muscular skeletal pain versus GERD Narrative Course 8-year-old female with history coronary disease, thoracic aortic aneurysm, hypertension, hypothyroidism, presents today with complaints of chest pain. She reports that as sharp in her mid substernal area. She was concerned this could be her aneurysm that is causing the pain. Aneurysm does not appear to be leaking. Is 4.5 cm in diameter. The patient will be admitted to the chest pain center for rule out protocol. I have ordered a TSH level. It is pending at this time. Diagnosis Primary Impression: Chest pain, atypical Additional Impressions: 4.5 cm thoracic aortic aneurysm Coronary artery disease Hypertension Hypothyroidism Admitting Information Admitting Physician Requests: Observation Wilson Butt MD August 30, 2017 20:06
[2017-08-30] MEDS ORDERED: METOPROLOL TARTRATE 50 MG TAB PO ONE (20:15)
[2017-08-30] MEDS ORDERED: METOPROLOL TARTRATE 25 MG TAB PO ONE (20:15)
[2017-08-30] MEDS: SODIUM CHLORIDE 0.9% FLUSH 10 ML FLUSH IV FLUSH SCH (21:00)
[2017-08-30 23:12] LABS: TROPONIN I LESS THAN 0.02 NG/ML (0.02-0.05)
[2017-08-30 23:56] LABS: TROPONIN I LESS THAN 0.02 NG/ML (0.02-0.05)
[2017-08-31 03:06] VITALS: BP 133/77; PULSE 70; RESP 16; TEMP 97.3; O2SAT 94
[2017-08-31 07:28] VITALS: BP 143/93; PULSE 69; RESP 18; TEMP 97.6; O2SAT 97
[2017-08-31] MEDS ORDERED: NITROGLYCERIN 0.4 MG SL 25 TABS/BTL SL PRN (07:45)
[2017-08-31] MEDS ORDERED: ONDANSETRON ODT 4 MG TAB PO PRN (08:00)
[2017-08-31 08:07] VITALS: O2SAT 96
--- NOTE | 2017-08-31 08:15 | HHI.HP ---
HPI Primary Care Physician Terry Hobson M.D. Chief Complaint Chest pain and palpations History of Present Illness 62 year old female with history of CAD, x1 cardiac stent, hyperlipidemia, and hypertension present to ER for further evaluation of nonexertional neck pain and palpations. Onset 3 pm. Described as heart "pounding fast and flipping/ flopping sensation." Accompanying symptom of tightness in face and neck. Took total of 3 Nitro SL, 5 minutes apart, taken at home. When symptoms did not improve she called 911. Discomfort 11/23. No radiation. Duration severe discomfort and palpations 45 minutes, reporting "pounding went away sometime in evening." Associated symptoms dyspnea and headache. No nausea, vomiting, or diaphoresis. No know precipitating factors. Relieving factors Metoprolol and morphine given in ER. Endorses running out of her Metoprolol 6 days ago, restarting yesterday morning. No current discomfort. Endorses similar pain in the past. Follows with Dr. Paulino. Endorses wearing a Holter monitor in the past. Most recent cardiac catheterization 2015. Review of Systems General: No fatigue,weakness, fever, chills, or recent illness. Has been in her general state of health. HEENT: No PERSAUD, no vision changes, no nasal congestion or drainage, no dysphasia CV: As stated above. No current pressure, chest pain, neck pain, palpitations, or dizziness. RESP: No SOB, cough, wheeze, or recent respiratory illness GI: No nausea, vomiting, bowel changes, diarrhea, constipation, pain, distention , melena, or blood in the stool. : No dysuria, urgency, frequency EXT: No lower leg edema, no paraesthesias MS: No discomfort, injury, trauma, or change in ROM NEURO: No difficulty with balance, LOC, motor/sensory deficits PSYCH: No anxiety, depression, or suicidal ideation SKIN: No rashes, no concerning lesions Past Family Social History Allergies: Coded Allergies: acetaminophen (Unverified Allergy, Severe, 08/30/17) ciprofloxacin (Unverified Allergy, Severe, 08/30/17) nifedipine (Unverified Allergy, Severe, 08/30/17) propoxyphene (Unverified Allergy, Severe, 08/30/17) Sulfa (Sulfonamide Antibiotics) (Unverified Allergy, Intermediate, HIVES, 08/30/17) tizanidine (Unverified Allergy, Intermediate, VOMITING, 08/30/17) Past Medical History CAD, x1 cardiac stent, hypertension, hyperlipidemia, fibromyalgia, thoracic aortic aneurysm, hypothyroidism, SVT, paroxysmal afib Past Surgical History , umbical hernia repair-1998, x1 cardiac stent Reported Medications Reported Meds & Active Scripts Active Reported Flexeril (Cyclobenzaprine HCl) 10 Mg Tab 10 Mg PO TID Gabapentin 300 Mg Cap 300 Mg PO TID Amlodipine (Amlodipine Besylate) 5 Mg Tab 5 Mg PO DAILY Cymbalta DR (Duloxetine HCl) 60 Mg Capdr 60 Mg PO BID Losartan (Losartan Potassium) 50 Mg Tab 50 Mg PO BID Metoprolol Tartrate 25 Mg Tab 75 Mg PO BID Levothyroxine (Levothyroxine Sodium) 75 Mcg Tab 75 Mcg PO DAILY Lansoprazole 30 Mg Capdr 30 Mg PO BID Flonase Nasal [place] (Fluticasone Nasal [place]) 50 Mcg/Act [place] 2 [place] EACH NARE DAILY PRN Linda Allergy (Fexofenadine HCl) 180 Mg Tab 180 Mg PO DAILY PRN Aviane (Levonorgestrel-Ethinyl Estradiol) 0.1-20 Mg-Mcg Tab 1 Tab PO DAILY Aspirin Adult Low Strength (Aspirin) 81 Mg Tabdr 81 Mg PO HS Active Ordered Medications Current Medications Medications (Trade) Dose Ordered Sig/Charity Route Start Time Stop Time Status Last Admin (NS Flush) 2 ml UNSCH PRN IV FLUSH 08/30/17 20:00 (NS Flush) 2 ml BID IV FLUSH 08/30/17 21:00 (Zofran Odt) 4 mg Q6H PRN PO 08/31/17 08:00 (Nitrostat Sl) 0.4 mg Q5M PRN SL 08/31/17 07:45 (Aspirin) 325 mg DAILY PO 08/31/17 09:00 Social History Known CAD, hypertension, and hyperlipidemia. No known diabetes. Not currently taking a statin, denies previous intolerance of statin. Lifelong nonsmoker. Denies alcohol or illegal drug use. . Endorsed sedentary lifestyle. Past cardiac testing 03/20/16 Cardiac Catheterization (Dr Paulino) Conclusions 1. No significant coronary stenosis to explain her anginal symptoms. 2. Normal ventricular function. 3. Dilated aorta. Recommendations 1. Medical management. 2. We will discontinued Lozol due to the severe hypokalemia on presentation. 04/03/14 Cardiac Catheterization (Dr. Bee) Conclusions 1. Widely patent mid left anterior descending coronary stent. 2. Normal left sided filling pressures. 02/27/14 Cardiac Catheterization (Dr. Bee) Conclusions 1. Subtotally occluded mid left anterior descending coronary artery. 2. Successful percutaneous intervention with bare-metal stenting to the mid left anterior descending coronary artery. 3. Normal left ventricular systolic function. 4. Normal left-sided filling fractures. Physical Exam Vital Signs Vital Signs Date Time Temp Pulse Resp B/P (MAP) Pulse Ox O2 Delivery O2 Flow Rate FiO2 08/31/17 08:07 96 21 08/31/17 07:28 97.6 69 18 143/93 (110) 97 08/31/17 03:06 97.3 70 16 133/77 (95) 94 08/30/17 23:49 98.1 70 16 140/79 (99) 96 08/30/17 22:00 98 Nasal Cannula 2.00 08/30/17 21:24 98.2 76 18 140/84 (102) 98 08/30/17 21:00 08/30/17 20:26 95 Nasal Cannula 2.00 08/30/17 18:25 107 20 146/67 (93) 95 Room Air 2.00 08/30/17 18:23 96 Room Air 2.00 08/30/17 17:23 18 08/30/17 16:56 100 20 147/80 (102) 93 Room Air 2.00 08/30/17 16:30 95 Nasal Cannula 2.00 08/30/17 16:30 99 18 148/73 (98) 94 Room Air 2.00 08/30/17 16:19 98.3 98 18 152/88 (109) 95 Physical Exam GENERAL: Alert WN, WD, NAD, pleasant, moderately obese female HEAD: NC, AT EYES: Sclera clear, conjunctiva without injection, pupils equal and round ENT: Mucous membranes pink and moist CV: RRR, without murmur, rub, gallop, no JVD, S1-S2 no S3-S4. Chest wall nontender with palpation. RESP: Clear lungs throughout bilateral, no crackles, wheeze, rhonchi, symmetrical chest rise, nonlabored, able to speak in full sentences ABD: Soft, NT, ND, no masses, positive bowel tones EXT: Pulses +2x4, no dependent edema MS: Normal tone x4 extremities, nontender, no obvious deformities, full range of motion NEURO: CN II through CN XII grossly intact, motor strength 5/5 PSYCH: A+O x3, pleasant affect, appropriate speech, mood, insight and judgment SKIN: Normal turgor, normal texture, no lesions, no rashes Laboratory Laboratory Tests Test 08/30/17 16:30 08/30/17 20:40 08/30/17 23:30 White Blood Count 6.0 Red Blood Count 4.48 Hemoglobin 13.7 Hematocrit 39.7 Mean Corpuscular Volume 88.5 Mean Corpuscular Hemoglobin 30.6 Mean Corpuscular Hemoglobin Concent 34.5 Red Cell Distribution Width 13.5 Platelet Count 293 Mean Platelet Volume 6.9 Neutrophils (%) (Auto) 44.0 Lymphocytes (%) (Auto) 45.5 Monocytes (%) (Auto) 7.8 Eosinophils (%) (Auto) 1.3 Basophils (%) (Auto) 1.4 Neutrophils # (Auto) 2.6 Lymphocytes # (Auto) 2.7 Monocytes # (Auto) 0.5 Eosinophils # (Auto) 0.1 Basophils # (Auto) 0.1 CBC Comment DIFF FINAL Differential Comment Prothrombin Time 10.0 Prothromb Time International Ratio 1.0 Activated Partial Thromboplast Time 23.0 Blood Urea Nitrogen 8 Creatinine 0.68 Random Glucose 152 Calcium Level 8.3 Magnesium Level 2.3 Sodium Level 142 Potassium Level 3.5 Chloride Level 107 Carbon Dioxide Level 25.0 Anion Gap 10 Estimat Glomerular Filtration Rate 88 Total Creatine Kinase 260 235 226 Creatine Kinase MB 2.9 2.8 3.0 Creatine Kinase MB % 1.1 1.2 1.3 Troponin I LESS THAN 0.02 LESS THAN 0.02 LESS THAN 0.02 Thyroid Stimulating Hormone 3rd Gen 5.240 Result Diagram: 08/30/17 1630 08/30/17 1630 Imaging Last 48 hours Impressions Chest X-Ray 08/30/17 1621 Signed Impressions: Service Date/Time: August 16:26 - CONCLUSION: 1. Stable dilatation of the aortic root. 2. No acute abnormality or significant interval change. Vidal Jackson MD Aorta CTA 08/30/17 0000 Signed Impressions: Service Date/Time: August 18:32 - CONCLUSION: 1. Aneurysmal dilatation of the ascending thoracic aorta measuring 4.5 cm. 2. No dissection or abdominal aneurysm is seen. 3. Hepatic steatosis. 4. Small 3 mm nonobstructing left renal stone. 5. Colonic diverticula. Jarod Carbone MD Course EKG Normal sinus rhythm, no ST-T segment changes Caprini VTE Risk Assessment Caprini VTE Risk Assessment: Mod/High Risk (score >= 2) Caprini Risk Assessment Model Point Value = 1 Point Value = 2 Point Value = 3 Point Value = 5 Age 41-60 Minor surgery BMI > 25 kg/m2 Swollen legs Varicose veins or History of unexplained or recurrent spontaneous Oral contraceptives or hormone replacement Sepsis (< 1 month) Serious lung disease, including pneumonia (< 1 month) Abnormal pulmonary function Acute myocardial infarction Congestive heart failure (< 1 month) History of inflammatory bowel disease Medical patient at bed rest Age 61-74 Arthroscopic surgery Major open surgery (> 45 min) Laparoscopic surgery (> 45 min) Malignancy Confined to bed (> 72 hours) Immobilizing plaster cast Central venous access Age >= 75 History of VTE Family history of VTE Factor V Leiden Prothrombin [id number] Lupus anticoagulant Anticardiolipin antibodies Elevated serum homocysteine Heparin-induced thrombocytopenia Other congenital or acquired thrombophilia Stroke (< 1 month) Elective arthroplasty Hip, pelvis, or leg fracture Acute spinal cord injury (< 1 month) Prophylaxis Regimen Total Risk Factor Score Risk Level Prophylaxis Regimen 0-1 Low Early ambulation 2 Moderate Order ONE of the following: *Sequential Compression Device (SCD) *Heparin 5000 units SQ BID 3-4 Higher Order ONE of the following medications: *Heparin 5000 units SQ TID *Enoxaparin/Lovenox 40 mg SQ daily (WT < 150 kg, CrCl > 30 mL/min) *Enoxaparin/Lovenox 30 mg SQ daily (WT < 150 kg, CrCl > 10-29 mL/min) *Enoxaparin/Lovenox 30 mg SQ BID (WT < 150 kg, CrCl > 30 mL/min) AND/OR *Sequential Compression Device (SCD) 5 or more Highest Order ONE of the following medications: *Heparin 5000 units SQ TID (Preferred with Epidurals) *Enoxaparin/Lovenox 40 mg SQ daily (WT < 150 kg, CrCl > 30 mL/min) *Enoxaparin/Lovenox 30 mg SQ daily (WT < 150 kg, CrCl > 10-29 mL/min) *Enoxaparin/Lovenox 30 mg SQ BID (WT < 150 kg, CrCl > 30 mL/min) AND *Sequential Compression Device (SCD) Assessment and Plan Assessment and Plan #1 Chest pain-admitted to chest pain center. ACS ruled out with 3 sets of EKGs, cardiac enzymes, and monitor on telemetry overnight. Seen and evaluated by Dr. Dean. Call will be placed to Dr. Paulino office to discuss plan of care, including possible chemical testing prior to discharge or discharge patient with follow up with Dr Paulino. Further disposition to follow after contacting patient's ginger farmer. Patient verbalizes understanding and agreeable plan of care. Start statin therapy, instructed to notify both her PCP and ginger farmer of additional statin therapy started. Verbalized understanding. #2 History of CAD-continue metoprolol, losartan, amlodipine 0910 Contacted [facility] office. Office staff reports Dr. Paulino out of office today and not director of strategic communications, therefore office unable to contact Dr. Paulino for a return call. Notified Dr. Dean, proceed with Lexiscan this morning. Patient made aware and agreeable to plan of care. Megan Johnson August 31, 2017 08:15
[2017-08-31 08:25] VITALS: PULSE 75
[2017-08-31] MEDS: SODIUM CHLORIDE 0.9% FLUSH 10 ML FLUSH IV FLUSH SCH (08:46)
[2017-08-31] MEDS ORDERED: ASPIRIN 325 MG TAB PO SCH (09:00)
[2017-08-31] MEDS ORDERED: amLODIPine BESYLATE 5 MG TAB PO SCH (11:15)
[2017-08-31] MEDS ORDERED: NON-FORMULARY DRUG (Lansoprazole 30 MG) PO SCH (11:15)
[2017-08-31] MEDS ORDERED: METOPROLOL TARTRATE 25 MG TAB PO SCH (11:30)
[2017-08-31] MEDS ORDERED: PANTOPRAZOLE SOD 40 MG DELAYED RELEASE TAB PO SCH (11:30)
[2017-08-31] MEDS ORDERED: DULoxetine HCl DR 60 MG CAP PO SCH (11:30)
[2017-08-31] MEDS ORDERED: LOSARTAN 50 MG TAB PO SCH (11:30)
[2017-08-31] MEDS ORDERED: REGADENOSON INJ 0.4 MG/5 ML SYR IV ONE (11:58)
[2017-08-31] MEDS ORDERED: GABAPENTIN 300 MG CAP PO SCH (13:00)
--- NOTE | 2017-08-31 13:31 | RADRPT ---
EXAM DATE/TIME: 08/31/2017 11:50 [place] COMPARISON: MYOCARDIAL PERF PHARM SPECT, GATED W/EF, August 02, 2016, 9:16. INDICATIONS : Mid chest pressure. Angina. Coronary artery disease. DOSE: 26.3 mCi Tc99m Myoview at stress. 8.6 mCi Tc99m Myoview at rest. 0.4 mg Lexiscan STRESS SYMPTOMS: Flushed. EJECTION FRACTION: > 70% MEDICAL HISTORY : Hypertension. SURGICAL HISTORY : Coronary artery stent. ENCOUNTER: Initial ACUITY: 3 days PAIN SCALE: 3/10 LOCATION: Bilateral chest TECHNIQUE: The patient underwent pharmacologic stress with infusion of prescribed dose. Continuous ECG tracing was monitored during stress. Gated SPECT imaging was performed after stress and conventional SPECT i maging was performed at rest. The examination was performed on a SPECT/CT scanner, both attenuation and non-corrected datasets were reviewed. FINDINGS: DISTRIBUTION: The maximum perfused segment at stress is in the anterior wall. PERFUSION STUDY: The pattern of perfusion at stress is within normal limits. GATED STUDY: There is intact wall motion and thickening without hypokinetic or dyskinetic segments. CONCLUSION: 1. No definite stress-induced ischemia. 2. Intact wall motion with EF of >70%. RISK CATEGORY: Low (<1% Annual Mortality Rate) Vidal Jackson MD on August 31, 2017 at 13:27 Board Certified Radiologist. This report was verified electronically.
--- NOTE | 2017-08-31 13:33 | HHI.DCPOC ---
Discharge Care Plan Diagnosis: (1) Atypical chest pain (2) H/O heart artery stent Goals to Promote Your Health * To prevent worsening of your condition and complications * To maintain your health at the optimal level Directions to Meet Your Goals Take your medications as prescribed Follow your dietary instruction Follow activity as directed Keep your appointments as scheduled Take your immunizations and boosters as scheduled If your symptoms worsen call your PCP, if no PCP go to Urgent Care Center or Emergency Room Smoking is Dangerous to Your Health. Avoid second hand smoke Call the 24-hour hour crisis hotline for domestic abuse at Megan Johnson August 31, 2017 13:33
[2017-08-31] MEDS ORDERED: ATOR10TA15 PO (13:52)
--- NOTE | 2017-08-31 14:30 | TR ---
Date Performed: 08/31/2017 Time Performed: 12:13:30 DOCTOR: Rashmi Dean DRUG LIST: CLINICAL HISTORY: ANGINA REASON FOR TEST: REASON FOR ENDING: OBSERVATION: CONCLUSION: Lexiscan stress test was performed under standard four minute protocol. Radionuclid e was injected one minute prior to ending the test. No electrocardiographic abormalities were present to suggest ischemia. Nuclear imaging and interpretation are pending. COMMENTS: No ischemia
--- NOTE | 2017-08-31 14:36 | EKG ---
Date Performed: 08/31/2017 Time Performed: 00:17:00 PTAGE: 62 years EKG: Sinus rhythm INFERIOR MYOCARDIAL INFARCTION ABNORMAL ECG Since PREVIOUS TRACING , no significant change noted PREVIOUS TRACIN08/30/2017 22.33 DOCTOR: Rashmi Dean Interpretating Date/Time 08/31/2017 14:33:26
--- NOTE | 2017-08-31 14:37 | EKG ---
Date Performed: 08/30/2017 Time Performed: 22:33:04 PTAGE: 62 years EKG: Sinus rhythm LOW QRS VOLTAGE IN PRECORDIAL LEADS MODERATE VOLTAGE CRITERIA FOR LVH, CONSIDER NORMAL VARIANT POSSI BLE ANTERIOR MYOCARDIAL INFARCTION BORDERLINE ECG Since PREVIOUS TRACING , no significant change noted PREVIOUS TRACIN08/30/2017 17.45 DOCTOR: Rashmi Dean Interpretating Date/Time 08/31/2017 14:33:56
--- NOTE | 2017-08-31 14:38 | EKG ---
Date Performed: 08/30/2017 Time Performed: 17:45:25 PTAGE: 62 years EKG: Sinus rhythm LOW QRS VOLTAGE IN PRECORDIAL LEADS POSSIBLE ANTERIOR MYOCARDIAL INFARCTION BORDERLINE ECG Since PREVIOUS TRACING , no significant change noted PREVIOUS TRACIN10/05/2016 17.06 DOCTOR: Rashmi Dean Interpretating Date/Time 08/31/2017 14:34:36
[2017-09-01] MEDS ORDERED: LEVOTHYROXINE SODIUM 75 MCG TAB PO SCH (06:00)
[2017-09-01] MEDS ORDERED: ETHINYL ESTRADIOL PO SCH (09:00)
[2017-09-01] MEDS ORDERED: LEVONORGESTREL PO SCH (09:00)
== END 2017-08-31 14:43 | disposition home or self-care (01) ==
LOC: NEPE 16:16 → NEDA 20:08 → NEPHCDU 21:21
PROVIDERS: ADMIT Internal Medicine Interventional Cardiology; ATTEND Internal Medicine Interventional Cardiology
DX: R07.89 Other chest pain (principal); I71.2 Thoracic aortic aneurysm, without rupture; I25.10 Atherosclerotic heart disease of native coronary artery without angina pectoris; I10 Essential (primary) hypertension; E03.9 Hypothyroidism, unspecified; R06.02 Shortness of breath; R11.0 Nausea; R51 Headache; M79.7 Fibromyalgia; R94.31 Abnormal electrocardiogram [ECG] [EKG]; Z79.01 Long term (current) use of anticoagulants; Z95.5 Presence of coronary angioplasty implant and graft
CPT/HCPCS: 71045; 71275; 74174; 78452; 80048; 82550; 82552; 83735; 84443; 84484; 85025; 85610; 85730; 93005; 93017; 96374; 99285; A9502; G0378; J2270; J2785; Q9967